=== PATIENT | female | born 1995 | race Caucasian/White ===

== ENCOUNTER 2019-07-25 20:41 | Emergency (ER) | payer SELFPAY ==
[2019-07-25 20:47] VITALS: BP 141/99; PULSE 66; RESP 16; TEMP 36.9; O2SAT 100; BMI 35.4
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
[2019-07-25] MEDS: HYDROcodone-acetaminophen 5-325 mg Tablet 1 TAB PO (21:08)
--- NOTE | 2019-07-25 21:30 | PC.NURSE ---
xray in room with pt
--- NOTE | 2019-07-25 21:43 | PC.NURSE ---
pain is a 5 on a scale of 1-10
[2019-07-25] MEDS: HYDROcodone-acetaminophen 7.5-325 mg Tablet 1 TAB PO (22:52)
[2019-07-25 22:53] VITALS: BP 138/87; PULSE 85; RESP 16; TEMP 36.7; O2SAT 96
== END 2019-07-25 23:00 | disposition home or self-care (01) ==
PROVIDERS: Emergency Provider Physician Assistant; Family Provider Nurse Practitioner
DX: S52.122A Displaced fracture of head of left radius, initial encounter for closed fracture (principal); V86.55XA Driver of 3- or 4- wheeled all-terrain vehicle (ATV) injured in nontraffic accident, initial encounter; F17.200 Nicotine dependence, unspecified, uncomplicated
CPT/HCPCS: 12345; 29125; 73080; 99281; 99283

== ENCOUNTER 2019-07-29 16:14 | Outpatient (CLI) | payer OTHER, SELFPAY | END 2019-07-29 16:15 | disposition home or self-care (01) | LOC: SPT 16:14 | PROVIDERS: Family Provider Nurse Practitioner; Visit Provider Specialist | DX: Z46.89 Encounter for fitting and adjustment of other specified devices (principal); S52.125D Nondisplaced fracture of head of left radius, subsequent encounter for closed fracture with routine healing; X58.XXXD Exposure to other specified factors, subsequent encounter | CPT/HCPCS: L3761 ==

== ENCOUNTER → 2019-08-07 14:04 | Outpatient (BNVA) | payer OTHER, SELFPAY | PROVIDERS: Family Provider Nurse Practitioner; Visit Provider Specialist | DX: S52.122A Displaced fracture of head of left radius, initial encounter for closed fracture (principal); X58.XXXA Exposure to other specified factors, initial encounter | CPT/HCPCS: 73080 ==

== ENCOUNTER → 2019-08-29 08:55 | Outpatient (BNVA) | payer OTHER, SELFPAY | PROVIDERS: Family Provider Nurse Practitioner; Visit Provider Specialist | DX: S52.122A Displaced fracture of head of left radius, initial encounter for closed fracture (principal) | CPT/HCPCS: 73080 ==

== ENCOUNTER → 2019-09-26 11:30 | Outpatient (BNVA) | payer OTHER, SELFPAY | PROVIDERS: Family Provider Nurse Practitioner; Visit Provider Specialist | DX: S52.122A Displaced fracture of head of left radius, initial encounter for closed fracture (principal); X58.XXXA Exposure to other specified factors, initial encounter | CPT/HCPCS: 73080 ==

== ENCOUNTER 2019-09-30 23:18 | Emergency (ER) | payer OTHER, SELFPAY ==
[2019-09-30 23:23] VITALS: BP 138/96; PULSE 138; RESP 14; TEMP 36.7; O2SAT 100; BMI 41.3
--- NOTE | 2019-09-30 23:49 | W.ED.FEMALGU ---
HPI - Female Genitourinary General: Chief complaint: Vaginal Bleeding Stated complaint: preg cramping/bleeding Time Seen by Provider: 09/30/19 23:34 History of Present Illness: HPI Narrative: Erlinda is a 24-year-old female who comes in complaining of vaginal bleeding. The patient is believed to be 6 weeks . She has had a positive test and a ultrasound showing a 6-week at [facility]. Dr. Nur is her physician. Since Monday she has been having intermittent vaginal bleeding and cramping. She denies any discharge or urinary symptoms. She has any lightheadedness or dizziness or near syncopal episodes. This is her first . She describes her pain as cramping in the midline and intermittent in nature. She is not tried any for this at home and she is unaware of anything that makes it better or worse. Associated symptoms: Reports abdominal pain; Deny headache(s), nausea or syncope Date of Last Menstrual Period: 07/17/19 Review of Systems Const: Denies: fever(s), chills, body aches, fatigue, malaise, night sweats or diaphoresis Eyes: Denies: change in vision, blurry vision or blind spots ENMT: Denies: throat pain, odynophagia, hoarseness, ear or mastoid pain, ear discharge, change in hearing or nasal discharge Card: Denies: chest pain, palpitations, irregular heart rhythm, lightheadedness, syncope, pre-syncope, dyspnea on exertion or orthopnea Resp: Denies: dyspnea, productive cough, non-productive cough, wheezing, hemoptysis or chest congestion GI: Reports: abdominal pain; Denies: nausea, vomiting, hematemesis, coffee ground emesis, heartburn, diarrhea, constipation, GI cramping, hematochezia or melena : Denies: flank pain, dysuria, urinary frequency, urinary urgency, oliguria, urinary incontinence or hematuria Musc: Denies: neck pain, back pain, extremity pain, extremity swelling, joint pain, joint swelling, joint redness, joint warmth or joint stiffness Skin/Breast: Denies: rash, pruritus, erythema, skin tenderness or jaundice Neuro: Denies: headache(s), numbness in extremities, weakness in extremities, sensory changes, lack of coordination, difficulty walking, dizziness, vertigo, confusion or Slurred speech present Endo: Denies: polyuria, polydipsia, tired all the time, cold intolerance, excessive sweating, flushing, hot flashes or heat intolerance Kayden/Lymph: Denies: easy bruising, easy bleeding, petechiae, purpura or enlarged lymph nodes All/Imm: Denies: urticaria, throat swelling, tongue swelling, facial swelling or acute wheezing PFSH ED PFSH: Medical History Left radial head fracture No pertinent past medical history Surgical History No history of previous surgery Family History Father Diabetes Stroke Social History Smoking and tobacco status: never smoked Alcohol intake: never Female Reproductive History: Date of last menstrual period: 07/17/19 Physical Exam Const: COMMON NORMALS: no acute distress, patient oriented x3, no limitations, healthy appearing and well nourished EXAM LIMITATIONS: no altered mental status GENERAL APPEARANCE: cooperative, well kempt and well developed HENMT: COMMON NORMALS: normocephalic, atraumatic, hearing grossly normal bilaterally, external ears normal, EAC's normal, Normal external nose present and moist oral mucous membranes HEAD & SCALP: normal to inspection, normocephalic and atraumatic FACE & SINUS: normal facial exam and face symmetric NOSE: Normal external nose present and Normal nares present EXTERNAL EAR: Yes external ears normal EXTERNAL AUDITORY CANAL: EAC's normal MOUTH: Normal oral and palatal mucosa present, lip normal and tongue normal Eye: COMMON NORMALS: Equal, round and reactive pupils present, EOMs intact bilaterally, conjunctivae normal and no scleral icterus GENERAL EYE: appearance normal, both eyes and all related structures ALIGNMENT: Yes alignment normal PERIORBITAL: periorbital findings normal EYELID: eyelids normal CONJUNCTIVA: Yes conjunctivae normal SCLERA: sclerae normal PUPIL: Yes Equal, round and reactive pupils present Neck/C-Spine: COMMON NORMALS: full ROM, no lymphadenopathy, supple, no meningeal signs and no JVD GENERAL: Yes normal visual inspection and Yes trachea midline CERVICAL SPINE: Yes cervical ROM normal Chest: COMMONS NORMALS: normal inspection of the chest and normal palpation of entire chest wall Resp: COMMON NORMALS: normal respiratory effort, No retractions, No use of accessory muscles and clear to auscultation bilaterally EFFORT & INSPECTION: Yes able to speak in complete sentences AUSCULTATION: clear to auscultation bilaterally, no crackles, no rales, no rhonchi and no wheezes Cardio: COMMON NORMALS: no JVD, regular rate, regular rhythm, S1 normal heart sound present, S2 normal heart sound present, No gallops present (Cardio), No clicks present (Cardio), No murmurs present (Cardio) and No rub (Cardio) RATE: regular rate RHYTHM: regular rhythm HEART SOUNDS: S1 normal heart sound present, S2 normal heart sound present, no click, no gallops, no murmurs and no rubs GI: COMMON NORMALS: Soft to palpation, non-tender, No hepatosplenomegaly present and no masses PALPATION: Yes Soft to palpation, No Tenderness to palpation present (GI), No Guarding due to palpation present (GI), No Rigid due to palpation, Yes No hepatosplenomegaly present, No Hernia present, No Palpable mass present and No Pulsatile mass present : COMMON NORMALS: Yes no CVA tenderness BLADDER/KIDNEY EXAM: Yes no CVA tenderness EXTERNAL FEMALE EXAM: No Hernia present SPECULUM EXAM - CERVIX: Yes Other cervical findings present (Moderate vaginal bleeding with clots. Cervix closed. No tissue noted in the office. No cervical motion tenderness or adnexal tenderness.) Back/Pelvis: COMMON NORMALS: no CVA tenderness, thoracic and lumbar spine normal to inspection, no thoracic nor lumbar tenderness and thoraco-lumbar ROM normal Extremity: COMMON NORMALS: normal to inspection, full ROM, capillary refill normal, no joint enlargement, no clubbing, cyanosis or edema and no calf tenderness Neuro: COMMON NORMALS: patient oriented x3, CN's II-XII intact bilaterally, moves all extremities, no focal motor deficits and no sensory deficits noted MENINGEAL SIGNS: Yes no meningeal signs SPEECH: speech normal Psych: COMMON NORMALS: mental status grossly normal, Normal thought process present, cooperative, normal affect, speech normal and activity/motor behavior normal APPEARANCE: Yes well kempt SPEECH: Yes normal speech THOUGHT PROCESS: Normal thought process present Skin: COMMON NORMALS: no rashes or lesions noted, turgor normal, no jaundice, no petechiae and no mottling GENERAL SKIN EXAM: no rashes or lesions noted and turgor normal Course Vital Signs: Vital signs: Vital Signs Temperature 98.0 F 09/30/19 23:23 Pulse Rate 108 H 10/01/19 03:03 Respiratory Rate 18 10/01/19 03:03 Blood Pressure 116/72 10/01/19 03:03 Pulse Oximetry 98 10/01/19 03:03 MDM - Female MDM Narrative: Medical decision making narrative: Erlinda is a nice 24-year-old female who comes in with vaginal bleeding with a known and with a previous ultrasound at [facility] which shows an intrauterine with normal heart rate. Ultrasound tonight per the tech shows an incomplete with blood still in the uterus and the cervix. There is not appear to be any remaining products of conception. Patient's blood type is O- so she will receive RhoGam before discharge. I have reviewed the case in full with Dr. Nur who is agreeable to see her the next 1 to 2 days for recheck. Lab Data: Attestation: I reviewed the patient's lab results. Labs: Lab Results 09/30/19 09/30/19 09/30/19 Range/Units 23:50 23:50 23:50 WBC 12.7 H (4.0-10.0) 10^3/ uL RBC 4.58 (4.1-5.3) 10^6/u L Hgb 10.1 L (11.5-15.3) g/dL Hct 34.5 L (37.0-47.0) % MCV 75.3 L (81-99) fL MCH 22.1 L (28.0-34.0) pg MCHC 29.3 L (30.0-36.0) g/dL RDW 15.4 H (12.1-15.1) % Plt Count 367 (130-400) 10^3/c mm MPV 10.2 (7.4-10.4) fL Neut % (Auto) 76.1 % Lymph % (Auto) 14.2 % Denton % (Auto) 7.0 % Eos % (Auto) 1.8 % Baso % (Auto) 0.4 % Neut # (Auto) 9.7 H (1.8-7.7) 10^3/u L Lymph # (Auto) 1.8 (0.8-4.8) 10^3/u L Denton # (Auto) 0.9 (0.2-0.9) 10^3/u L Eos # (Auto) 0.2 (0.0-0.8) 10^3/u L Baso # (Auto) 0.1 (0.0-0.1) 10^3/u L Nucleated RBC % (a uto) 0 % Nucleated RBCs # 0.0 /100WBC Sodium 136 (136-145) mmol/L Potassium 3.8 (3.5-5.1) mmol/L Chloride 99 (98-107) mmol/L Carbon Dioxide 25 (22-29) mmol/L Anion Gap 15.8 (5-19) BUN 12 (6-20) mg/dL Creatinine 0.7 (0.5-0.9) mg/dL GFR Calculation 102.8 (90-130) mL/min Glucose 123 H (65-115) mg/dL Calculated Osmolal ity 279 L (285-295) mOsm/k g Calcium 9.8 (8.5-10.5) mg/dL Total Bilirubin 0.2 (0.15-1.2) mg/dL AST 16 (0-32) U/L ALT 14 (0-33) U/L Alkaline Phosphata se 76 (35-105) IU/L Total Protein 7.8 (6.6-8.7) g/dL Albumin 4.0 (3.5-5.2) g/dL Globulin 3.8 (1.3-4.6) g/dL HCG, Qual (Negative) Ser , Srinath i-Qnt mIU/mL Urine Color (Yellow) Urine Appearance (CLEAR) Urine pH (5-7) Ur Specific Gravit y (1.005-1.030) Urine Protein (Negative) Urine Glucose (UA) (Normal) Urine Ketones (Negative) Urine Blood (Negative) Urine Nitrate (Negative) Urine Bilirubin (NEGATIVE) Urine Urobilinogen (Negative) mg/dL Ur Leukocyte Yina ase (Negative) Urine RBC (0-2) /hpf Urine WBC (0-5) /hpf Ur Squamous Epith Cells (0-5) Urine Bacteria (NONE) Blood Type O Negative Rho(D) Type Negaive Antibody Screen Negative 09/30/19 09/30/19 10/01/19 Range/Units 23:50 23:50 00:15 WBC (4.0-10.0) 10^3/ uL RBC (4.1-5.3) 10^6/u L Hgb (11.5-15.3) g/dL Hct (37.0-47.0) % MCV (81-99) fL MCH (28.0-34.0) pg MCHC (30.0-36.0) g/dL RDW (12.1-15.1) % Plt Count (130-400) 10^3/c mm MPV (7.4-10.4) fL Neut % (Auto) % Lymph % (Auto) % Denton % (Auto) % Eos % (Auto) % Baso % (Auto) % Neut # (Auto) (1.8-7.7) 10^3/u L Lymph # (Auto) (0.8-4.8) 10^3/u L Denton # (Auto) (0.2-0.9) 10^3/u L Eos # (Auto) (0.0-0.8) 10^3/u L Baso # (Auto) (0.0-0.1) 10^3/u L Nucleated RBC % (a uto) % Nucleated RBCs # /100WBC Sodium (136-145) mmol/L Potassium (3.5-5.1) mmol/L Chloride (98-107) mmol/L Carbon Dioxide (22-29) mmol/L Anion Gap (5-19) BUN (6-20) mg/dL Creatinine (0.5-0.9) mg/dL GFR Calculation (90-130) mL/min Glucose (65-115) mg/dL Calculated Osmolal ity (285-295) mOsm/k g Calcium (8.5-10.5) mg/dL Total Bilirubin (0.15-1.2) mg/dL AST (0-32) U/L ALT (0-33) U/L Alkaline Phosphata se (35-105) IU/L Total Protein (6.6-8.7) g/dL Albumin (3.5-5.2) g/dL Globulin (1.3-4.6) g/dL HCG, Qual Positive H (Negative) Ser , Srinath i-Qnt 9881.00 mIU/mL Urine Color Yellow (Yellow) Urine Appearance Clear (CLEAR) Urine pH 5 (5-7) Ur Specific Gravit y 1.015 (1.005-1.030) Urine Protein Neg (Negative) Urine Glucose (UA) Norm (Normal) Urine Ketones Negative (Negative) Urine Blood 2+ H (Negative) Urine Nitrate Negative (Negative) Urine Bilirubin Neg (NEGATIVE) Urine Urobilinogen Norm (Negative) mg/dL Ur Leukocyte Yina ase Negative (Negative) Urine RBC Rare (0-2) /hpf Urine WBC Rare (0-5) /hpf Ur Squamous Epith Cells 0-4 H (0-5) Urine Bacteria Trace (NONE) Blood Type Rho(D) Type Antibody Screen Imaging Data: Ultrasound Pelvis: Radiologist's impression: Tech interpretation -incomplete AB with mild cervical dilatation. Clot within uterus and cervix. Tubes and adnexa normal. No ovarian cyst, no ovarian torsion. No free fluid. Discharge Plan Discharge Patient Disposition: Home, Self-Care Clinical Impression: Incomplete Condition: Stable Prescriptions: No Action (DME) Hinged Elbow Brace Qty: 1 RF: 0 ibuprofen 200 mg Tablet 200 mg PO Q6H PRN (Reason: Pain) RF: 0 Discharge Orders: Discharge Order (Routine); Ordered 10/01/19 Ordered By: Patricia Braxton Referrals: Maame Nur MD [Physician] - 1-3 days Ailyn Langford, [facility]-C [Primary Care Provider] - Discharge Diet: Advance as tolerated Discharge Activity: Resume usual activity Patient Instructions: Spontaneous Miscarriage (ED) Activity Restrictions/Additional Instructions: Please return to the ER immediately for any of the signs or symptoms listed on your discharge instruction sheets, worsening/changing of your symptoms, you are not getting better as quickly as expected, or for ANY other cause or concerns. Return to the ER if you go through more than 2 pads an hour, you feel lightheaded or dizzy, you pass out or nearly pass out, he develop a fever, you develop shortness of breath or for any other cause for concern. Be certain to follow-up with Dr. Nur later today or tomorrow for recheck. Discharge Date/Time: 10/01/19 03:21 Coding Level of Care Code ED Personal Trainer for Chg Fwd Exam Comprehensive
[2019-09-30 23:59] LABS: Basophils # 0.1 10^3/uL (0.0-0.1); Basophils % 0.4 %; Eosinophils # 0.2 10^3/uL (0.0-0.8); Eosinophils % 1.8 %; Hematocrit 34.5 % (37.0-47.0); Hemoglobin 10.1 g/dL (11.5-15.3); Lymphocytes # 1.8 10^3/uL (0.8-4.8); Lymphocytes % 14.2 %; Mean Corpuscular HGB Conc 29.3 g/dL (30.0-36.0); Mean Corpuscular Hemoglobin 22.1 pg (28.0-34.0); Mean Corpuscular Volume 75.3 fL (81-99); Mean Platelet Volume 10.2 fL (7.4-10.4); Monocytes # 0.9 10^3/uL (0.2-0.9); Neutrophils # 9.7 10^3/uL (1.8-7.7); Neutrophils % 76.1 %; Nucleated Red Blood Cells % 0 %; Platelet Count 367 10^3/cmm (130-400); Red Blood Count 4.58 10^6/uL (4.1-5.3); Red Cell Distribution Width 15.4 % (12.1-15.1); White Blood Count 12.7 10^3/uL (4.0-10.0)
[2019-10-01 00:07] LABS: HCG, Serum Qual Positive (Negative)
[2019-10-01 00:15] LABS: Alanine Aminotransferase 14 U/L (0-33); Alkaline Phosphatase 76 IU/L (35-105); Anion Gap 15.8 (5-19); Aspartate Amino Transferase 16 U/L (0-32); Blood Urea Nitrogen 12 mg/dL (6-20); Calcium 9.8 mg/dL (8.5-10.5); Carbon Dioxide 25 mmol/L (22-29); Chloride 99 mmol/L (98-107); Globulin 3.8 g/dL (1.3-4.6); Glomerular Filtration Rate 102.8 mL/min (90-130); Glucose 123 mg/dL (65-115); Osmolality Calculated 279 mOsm/kg (285-295); Potassium 3.8 mmol/L (3.5-5.1); Sodium 136 mmol/L (136-145); Total Bilirubin 0.2 mg/dL (0.15-1.2); Total Protein 7.8 g/dL (6.6-8.7)
[2019-10-01 00:30] VITALS: BP 128/77; PULSE 112; RESP 20; O2SAT 100
[2019-10-01] MEDS: sodium chloride 0.9% 1,000 ML 999 ML IV (00:36)
[2019-10-01] MEDS: sodium chloride 0.9% 1,000 ML 100 ML IV (00:37)
[2019-10-01 00:45] LABS: Bacteria Urine TRACE; Bilirubin Urine Neg (NEGATIVE); Blood Urine 2+ (Negative); Glucose Urine UA Norm (Normal); Ketones Urine Negative (Negative); Leukocyte Esterase Urine Negative (Negative); Nitrate Urine Negative (Negative); Protein Urine Neg (Negative); RBC Urine RARE /hpf (0-2); Specific Gravity, Urine 1.015 (1.005-1.030); Squamous Epithelial Cell Urine 0-4 (0-5); Urine Appearance Clear (CLEAR); Urine Color Yellow (Yellow); Urobilinogen Urine Norm (Negative); WBC Urine RARE /hpf (0-5); pH Urine 5 (5-7)
[2019-10-01 01:19] VITALS: PULSE 111; RESP 18; O2SAT 100
[2019-10-01 01:20] VITALS: PULSE 103; RESP 14; O2SAT 100
[2019-10-01 01:25] VITALS: BP 146/81; PULSE 112; RESP 21; O2SAT 100
[2019-10-01] MEDS: ondansetron 2 mg/ML SDV 2 mL 4 MG IVP (01:28)
[2019-10-01] MEDS: morphine 4 mg/mL SDV 1 mL IVP (01:28)
[2019-10-01 02:44] VITALS: PULSE 113; RESP 18; O2SAT 99
--- NOTE | 2019-10-01 03:02 | PC.NURSE ---
Pt. received RhoGam. No adverse reaction observed.
--- NOTE | 2019-10-01 03:02 | PC.NURSE ---
Pt. HR remains elevated after 2 liters NS. MD Braxton aware and spoke with patient. Pt. adamant that she wants to go home. Reports this is her normal heart rate 2/2 her anxiety
[2019-10-01 03:03] VITALS: BP 116/72; PULSE 108; RESP 18; O2SAT 98
[2019-10-01] MEDS: ketorolac 30 mg/mL INJ 10 MG IVP (03:14)
[2019-10-01] MEDS: HYDROcodone-acetaminophen 5-325 mg Tablet 1 TAB PO (03:14)
--- NOTE | 2019-10-01 23:35 | US_ITS ---
WS: [id number] EARLY OBSTETRICAL ULTRASOUND (<14 WEEKS). HISTORY: PAIN CRAMPING BLEEDING PT WAS 6 WEEKS WOTH [facility] COMPARISON: None available. Only transabdominal imaging is submitted through a nondistended urinary bladder. Poor visualization o f the endometrial canal. Cannot confirm intrauterine gestation. No cardiac activity is identified. No free fluid or adnexal masses. US/US OB <= 14 weeks fetus [id number] IMPRESSION: 1. Incomplete evaluation of the endometrium. Recommend additional imaging with transvaginal evaluation to exclude small intrauterine gestation. 2. No free fluid.
== END 2019-10-01 03:21 | disposition home or self-care (01) ==
PROVIDERS: Emergency Provider Emergency Medicine; PCP Nurse Practitioner
DX: O03.4 Incomplete spontaneous abortion without complication (principal)
CPT/HCPCS: 12345; 36415; 76801; 80053; 81001; 84702; 84703; 85025; 86850; 86900; 87210; 87491; 87591; 90384; 96360; 96361; 96372; 96374; 96375; 99284; J1885; J2270; J2405; J7030

== ENCOUNTER 2021-12-02 22:27 | Emergency (ER) | payer SELFPAY ==
[2021-12-02 22:56] VITALS: BP 154/94; PULSE 112; RESP 18; TEMP 36.6; O2SAT 100; BMI 43.4
[2021-12-03 00:15] LABS: Basophils % 0.3 %; Eosinophils # 0.2 10^3/uL (0.0-0.8); Eosinophils % 1.6 %; Hematocrit 35.9 % (37.0-47.0); Hemoglobin 10.6 g/dL (11.5-15.3); Lymphocytes # 1.6 10^3/uL (0.8-4.8); Lymphocytes % 16.5 %; Mean Corpuscular HGB Conc 29.5 g/dL (30.0-36.0); Mean Corpuscular Hemoglobin 22.7 pg (28.0-34.0); Mean Corpuscular Volume 76.9 fl (81-99); Monocytes # 0.7 10^3/uL (0.2-0.9); Monocytes % 6.6 %; Neutrophils % 74.7 %; Nucleated Red Blood Cells % 0 %; Platelet Count 321 10^3/cmm (130-400); Red Blood Count 4.67 10^6/uL (4.1-5.3); Red Cell Distribution Width 14.9 % (12.1-15.1); White Blood Count 9.9 10^3/uL (4.0-10.0)
--- NOTE | 2021-12-03 00:44 | USR_ITS ---
PROCEDURE INFORMATION: Exam: US First Trimester, Transabdominal and US , Transvaginal Exam date and time: 12/03/2021 12:51 AM Age: 26 years old Clinical indication: Lmp or gestational age (in weeks): 6w 5 d by lmp; ; Patient HX: Light vaginal bleeding today. G2-p0 one prior miscarriage; Additional info: Threatened miscarriage LABS AND CLINICAL REPORTS: Serum Choriogonadotropin (HCG): 7904 mIU/mL Last menstrual period start date: 10/17/2021 Gestational age (Established): 6 w 5 d Estimated due date (Established): 07/24/2022 TECHNIQUE: Imaging protocol: Real-time transabdominal obstetrical ultrasound of the maternal pelvis and a first trimester , less than 14 weeks 0 days, with image documentation. Transvaginal imaging was used for better evaluation of the fetus, adnexa, and/or cervix. COMPARISON: US OB <= 14 weeks fetus [id number] 10/01/2019 12:20 AM FINDINGS: Gestation: Intrauterine gestation is visualized. pole is visualized. Yolk sac is visualized. Embryonic/ heart rate: heart rate measures 97 bpm. Extra-embryonic membranes/Placenta: Subchorionic hematoma measures 2.1 cm x 1.3 cm x 1.8 cm. Amniotic fluid: Amniotic fluid and extra-amniotic fluid is normal for gestational age. BIOMETRY: Gestational age (AUA): 5 w 6 d Estimated due date (AUA): 07/30/2022 Haralson-Rump length (CRL): 25 mm. EGA (CRL) is 5 w 6 d MATERNAL: Uterus: Uterus measures 9.2 cm x 6.3 cm x 4.9 cm. Uterus measures 9.2 x 6.3 x 4.9 cm. Cervix: Unremarkable. Right ovary/adnexa: Right ovary measures 2.8 x 2.1 x 2.4 cm, volume of 7.3 mL. Left ovary/adnexa: Left ovary measures 3.2 x 2.5 x 2.7 cm, volume of 11.7 mL and contains a 1.6 cm corpus luteal cyst. Intraperitoneal space: No intraperitoneal free fluid. US/US OB <= 14 weeks fetus [id number] IMPRESSION: Single viable corresponding to 5 weeks, 6 days.
--- NOTE | 2021-12-03 00:48 | W.ED.PREGNAN ---
HPI - General: Chief complaint: Vaginal Bleeding Stated complaint: vaginal bleeding Time Seen by Provider: 12/03/21 00:38 Source: patient Mode of arrival: ambulatory Limitations: no limitations History of Present Illness: 26-year-old female who states she is roughly 6 weeks . States today she started having some vaginal bleeding. She states that its been mainly spotting she is denies any heavy bleeding denies passing any clots. States she had some slight cramping that is since resolved. She denies any worsening improving factors denies any fever denies any vomiting. Date of Last Menstrual Period: 10/17/21 Associated symptoms: Deny abdominal pain, headache(s), nausea or vomiting Review of Systems Const: Denies: fever(s), chills, body aches or change in appetite Eyes: Denies: blurry vision or eye discomfort ENMT: Denies: throat pain or dental pain Card: Denies: chest pain Resp: Denies: dyspnea GI: Denies: abdominal pain, nausea, vomiting or diarrhea : Reports: vaginal bleeding Musc: Denies: neck pain or back pain Skin/Breast: Denies: rash Neuro: Denies: headache(s) Psych: Denies: depression Kayden/Lymph: Denies: easy bruising All/Imm: Denies: urticaria PFSH ED PFSH: Medical History (Updated 12/03/21 @ 01:40 by Rudy Conti MD) Left radial head fracture No pertinent past medical history Surgical History No history of previous surgery Family History Father Diabetes Stroke Social History Smoking and tobacco status: never smoked Alcohol intake: never Female Reproductive History: Date of last menstrual period: 10/17/21 Physical Exam Const: COMMON NORMALS: no acute distress, patient oriented x3 and healthy appearing HENMT: COMMON NORMALS: normocephalic and atraumatic HEAD & SCALP: normocephalic and atraumatic Eye: COMMON NORMALS: Equal, round and reactive pupils present and EOMs intact bilaterally PUPIL: Yes Equal, round and reactive pupils present Neck/C-Spine: COMMON NORMALS: full ROM and supple Chest: COMMONS NORMALS: normal inspection of the chest and normal palpation of entire chest wall Resp: COMMON NORMALS: normal respiratory effort, No retractions, No use of accessory muscles and clear to auscultation bilaterally AUSCULTATION: clear to auscultation bilaterally Cardio: COMMON NORMALS: regular rate, regular rhythm and No murmurs present (Cardio) RATE: regular rate RHYTHM: regular rhythm GI: COMMON NORMALS: Normal to inspection, nondistended, normoactive bowel sounds present, Soft to palpation, non-tender and no masses PALPATION: Yes Soft to palpation Extremity: COMMON NORMALS: normal to inspection and full ROM Neuro: COMMON NORMALS: patient oriented x3, moves all extremities and no focal motor deficits Psych: COMMON NORMALS: mental status grossly normal, Normal thought process present and cooperative THOUGHT PROCESS: Normal thought process present Skin: COMMON NORMALS: no rashes or lesions noted and no wounds GENERAL SKIN EXAM: no rashes or lesions noted Course Vital Signs: Vital signs: Vital Signs Temperature 97.8 F 12/02/21 22:56 Pulse Rate 112 H 12/02/21 22:56 Respiratory Rate 18 12/02/21 22:56 Blood Pressure 154/94 12/02/21 22:56 Pulse Oximetry 100 12/02/21 22:56 Oxygen Delivery Me thod 12/02/21 22:56 MDM - OB/Uterine Contractions Medical Decision Making Patient presents here with a threatened miscarriage her bleeding here is minimal ultrasound showed IUP 5 weeks with good heart rate. Patient given RhoGAM here she is stable for discharge is to follow-up with OB and return if worsening she understands agrees to plan. Lab Data : 12/03/21 00:05 12/03/21 00:05 Laboratory Results WBC 9.9 10^3/uL (4.0-10.0) 12/03/21 00:05 RBC 4.67 10^6/uL (4.1-5.3) 12/03/21 00:05 Hgb 10.6 g/dL (11.5-15.3) L 12/03/21 00:05 Hct 35.9 % (37.0-47.0) L 12/03/21 00:05 MCV 76.9 fl (81-99) L 12/03/21 00:05 MCH 22.7 pg (28.0-34.0) L 12/03/21 00:05 MCHC 29.5 g/dL (30.0-36.0) L 12/03/21 00:05 RDW 14.9 % (12.1-15.1) 12/03/21 00:05 Plt Count 321 10^3/cmm (130-400) 12/03/21 00:05 MPV 10.0 fL (7.4-10.4) 12/03/21 00:05 Neut % (Auto) 74.7 % 12/03/21 00:05 Lymph % (Auto) 16.5 % 12/03/21 00:05 [place] % (Auto) 6.6 % 12/03/21 00:05 Eos % (Auto) 1.6 % 12/03/21 00:05 Baso % (Auto) 0.3 % 12/03/21 00:05 Neut # (Auto) 7.40 10^3/uL (1.8-7.7) 12/03/21 00:05 Lymph # (Auto) 1.6 10^3/uL (0.8-4.8) 12/03/21 00:05 [place] # (Auto) 0.7 10^3/uL (0.2-0.9) 12/03/21 00:05 Eos # (Auto) 0.2 10^3/uL (0.0-0.8) 12/03/21 00:05 Baso # (Auto) 0.0 10^3/uL (0.0-0.1) 12/03/21 00:05 Nucleated RBC % (auto) 0 % 12/03/21 00:05 Nucleated RBCs # 0.0 /100WBC 12/03/21 00:05 Sodium 136 mmol/L (136-145) 12/03/21 00:05 Potassium 4.2 mmol/L (3.5-5.1) 12/03/21 00:05 Chloride 101 mmol/L (98-107) 12/03/21 00:05 Carbon Dioxide 26 mmol/L (22-29) 12/03/21 00:05 Anion Gap 13.2 (5-19) 12/03/21 00:05 BUN 11 mg/dL (6-20) 12/03/21 00:05 Creatinine 0.6 mg/dL (0.5-0.9) 12/03/21 00:05 GFR Calculation 120.8 mL/min (90-130) 12/03/21 00:05 Glucose 104 mg/dL (65-115) 12/03/21 00:05 Calculated Osmolality 282 mOsm/kg (285-295) L 12/03/21 00:05 Calcium 9.0 mg/dL (8.5-10.5) 12/03/21 00:05 Total Bilirubin 0.2 mg/dL (0.15-1.2) 12/03/21 00:05 AST 17 U/L (0-32) 12/03/21 00:05 ALT 26 U/L (0-33) 12/03/21 00:05 Alkaline Phosphatase 87 IU/L (35-105) 12/03/21 00:05 Total Protein 7.2 g/dL (6.6-8.7) 12/03/21 00:05 Albumin 4.0 g/dL (3.5-5.2) 12/03/21 00:05 Globulin 3.2 g/dL (1.3-4.6) 12/03/21 00:05 Ser , Semi-Qnt 7904.00 mIU/mL 12/03/21 00:05 Discharge Plan Discharge Patient Disposition: Home Clinical Impression: Threatened miscarriage Condition: Stable Prescriptions: No Action (DME) Hinged Elbow Brace Qty: 1 0RF Rx Instructions: As directed ibuprofen 200 mg Tablet 200 mg PO Q6H PRN (Reason: Pain) Discharge Orders: Discharge ED (Routine); Ordered 12/03/21 Ordered By: Rudy Conti Referrals: Ailyn Langford FNP-C [Primary Care Provider] - Jona Guerrero MD [Physician] - 1-3 days Discharge Diet: Advance as tolerated Discharge Activity: Resume usual activity Patient Instructions: Threatened Miscarriage (ED) Coding Level of Care Code ED Seismograph Recorder for Justice Fwd Exam Comprehensive
[2021-12-03 00:49] LABS: Alanine Aminotransferase 26 U/L (0-33); Alkaline Phosphatase 87 IU/L (35-105); Anion Gap 13.2 (5-19); Aspartate Amino Transferase 17 U/L (0-32); Blood Urea Nitrogen 11 mg/dL (6-20); Carbon Dioxide 26 mmol/L (22-29); Chloride 101 mmol/L (98-107); Globulin 3.2 g/dL (1.3-4.6); Glomerular Filtration Rate 120.8 mL/min (90-130); Glucose 104 mg/dL (65-115); Osmolality Calculated 282 mOsm/kg (285-295); Potassium 4.2 mmol/L (3.5-5.1); Sodium 136 mmol/L (136-145); Total Bilirubin 0.2 mg/dL (0.15-1.2); Total Protein 7.2 g/dL (6.6-8.7)
[2021-12-03 01:54] VITALS: BP 128/91; PULSE 109; RESP 18; O2SAT 100
== END 2021-12-03 02:35 | disposition home or self-care (01) ==
PROVIDERS: Emergency Provider Emergency Medicine; PCP Nurse Practitioner
DX: O20.0 Threatened abortion (principal); Z3A.01 Less than 8 weeks gestation of pregnancy
CPT/HCPCS: 76801; 80053; 84702; 85025; 86850; 86900; 90384; 99284

== ENCOUNTER → 2021-12-21 10:44 | Outpatient (BNVA) | payer OTHER, SELFPAY | PROVIDERS: PCP Nurse Practitioner; Visit Provider Obstetrics & Gynecology | DX: Z34.81 Encounter for supervision of other normal pregnancy, first trimester (principal); Z3A.08 8 weeks gestation of pregnancy | CPT/HCPCS: 76817; 81025 ==

== ENCOUNTER 2021-12-28 14:55 | Emergency (ER) | payer OTHER, SELFPAY ==
[2021-12-28] VITALS (8 sets, daily range): BP systolic 126–159; BP diastolic 75–92; PULSE 96–114; RESP 16–18; TEMP 36.5–37.1; O2SAT 96–100; BMI 41.3
--- NOTE | 2021-12-28 15:52 | USR_ITS ---
PROCEDURE INFORMATION: Exam: US First Trimester, Transabdominal and US , Transvaginal Exam date and time: 12/28/2021 4:46 PM Age: 26 years old Clinical indication: Lmp or gestational age (in weeks): 9w4d; Antepartum complications; Bleeding; ; Additional info: Vaginal bleeding LABS AND CLINICAL REPORTS: Last menstrual period start date: 10/17/2021 Gestational age (Established): 10 w 2 d Estimated due date (Established): 07/24/2022 TECHNIQUE: Imaging protocol: Real-time transabdominal obstetrical ultrasound of the maternal pelvis and a first trimester , less than 14 weeks 0 days, with image documentation. Transvaginal imaging was used for better evaluation of the fetus, adnexa, and/or cervix. COMPARISON: US OB transvaginal [id number] 12/21/2021 10:55 AM FINDINGS: Gestation: Single intrauterine gestation. Embryonic/ heart rate: 206 bpm. Extra-embryonic membranes/Placenta: No subchorionic hemorrhage. Amniotic fluid: Amniotic fluid and extra-amniotic fluid is normal for gestational age. BIOMETRY: Gestational age (AUA): 9 w 4 d [place]ump length (CRL): 28 mm. EGA (CRL) is 9 w 4 d MATERNAL: Uterus: Unremarkable. Cervix: Cervical length measures 3.5 cm. Small amount of anechoic fluid in the endocervical canal. The cervix is closed measuring 3.5 cm. Right ovary/adnexa: The right ovary measures 1.7 x 1.8 x 2.8 cm with normal blood flow. Left ovary/adnexa: The left ovary measures 2.2 x 2.5 x 3.3 cm with normal blood flow and a 1.8 cm follicle. Intraperitoneal space: Trace fluid in the cul-de-sac. US/US OB <=14 wk fetus w transvag IMPRESSION: 1. Single viable intrauterine gestation estimated at 9 weeks 4 days. 2. tachycardia measuring 206 bpm. Follow-up ultrasound is recommended.
--- NOTE | 2021-12-28 15:58 | ED_ITS ---
HPI - General Adult General: Chief complaint: Vaginal Bleeding Stated complaint: 10 weeks , Bleeding Time Seen by Provider: 12/28/21 15:40 History of Present Illness: 26-year-old female who is 10 weeks presenting today with continued vaginal bleeding. Patient notes that she has had intermittent vaginal bleeding for several weeks. Had an outpatient ultrasound done that demonstrated a subchorionic hemorrhage. Patient states bleeding has worsened today. With passage of large clots. She notes she is an O- blood type. She denies fevers, chills, nausea, vomiting she denies significant cramping. Review of Systems General: Reports: 10 or more systems reviewed and unremarkable except in HPI and below PFSH ED PFSH: Medical History (Updated 12/28/21 @ 18:40 by Scott Fuentes DO) Anemia Left radial head fracture No pertinent past medical history neghx: htn,dm,thyroid,dvt/pe PCP: None PCOS (polycystic ovarian syndrome) Surgical History (Updated 12/21/21 @ 09:40 by Ladi Mclean APN, JAMIE) No history of previous surgery Family History Father Diabetes Stroke Hypercholesteremia Hypertension Thyroid disease Denies family history of Colon cancer Ovarian cancer Heart disease Breast cancer Uterine cancer Female Reproductive History: Date of last menstrual period: 10/17/21 Physical Exam Const: COMMON NORMALS: no acute distress, patient oriented x3 and alert GENERAL APPEARANCE: cooperative ORIENTATION/CONSCIOUSNESS: Yes awake, Yes oriented to person, Yes oriented to place and Yes oriented to time HENMT: COMMON NORMALS: normocephalic, atraumatic, external ears normal, Normal external nose present and moist oral mucous membranes HEAD & SCALP: normal to inspection, normocephalic and atraumatic NOSE: Normal external nose present GENERAL EAR: hearing grossly impaired EXTERNAL EAR: Yes external ears normal Eye: COMMON NORMALS: Equal, round and reactive pupils present, EOMs intact bilaterally, conjunctivae normal and no scleral icterus GENERAL EYE: appearance normal, both eyes and all related structures EYELID: eyelids normal CONJUNCTIVA: Yes conjunctivae normal SCLERA: sclerae normal PUPIL: Yes Equal, round and reactive pupils present Neck/C-Spine: COMMON NORMALS: full ROM, supple and no JVD GENERAL: Yes normal visual inspection Lymph: LYMPHATIC: no lymphadenopathy noted and no lymphedema noted Chest: COMMONS NORMALS: normal inspection of the chest Resp: COMMON NORMALS: normal respiratory effort, No retractions and No use of accessory muscles Cardio: COMMON NORMALS: no JVD, regular rate and regular rhythm RATE: regular rate RHYTHM: regular rhythm GI: COMMON NORMALS: Normal to inspection, nondistended, normoactive bowel sounds present : COMMON NORMALS: Yes no CVA tenderness BLADDER/KIDNEY EXAM: Yes no CVA tenderness Back/Pelvis: COMMON NORMALS: no CVA tenderness and thoracic and lumbar spine normal to inspection Extremity: COMMON NORMALS: normal to inspection, full ROM and capillary refill normal GENERAL: Yes normal exam except as noted Neuro: COMMON NORMALS: patient oriented x3, CN's II-XII intact bilaterally, moves all extremities, no focal motor deficits, no sensory deficits noted and gait normal SENSORIUM/ORIENTATION: Yes alert, Yes oriented to person, Yes oriented to place and Yes oriented to time Psych: COMMON NORMALS: mental status grossly normal, Normal thought process present, cooperative and normal affect THOUGHT PROCESS: Normal thought process present Skin: COMMON NORMALS: no rashes or lesions noted and no wounds GENERAL SKIN EXAM: no rashes or lesions noted Course Vital Signs: Vital signs: Vital Signs Temperature 98.2 F 12/28/21 15:02 Pulse Rate 101 H 12/28/21 17:58 Respiratory Rate 16 12/28/21 17:58 Blood Pressure 136/82 12/28/21 17:58 Pulse Oximetry 100 12/28/21 17:58 Oxygen Delivery Me thod 12/28/21 15:02 [facility] - General Adult Medical Decision Making 26-year-old female 10 weeks presenting today with vaginal bleeding. Ultrasound with evidence of intrauterine however tachycardic. Patient was given RhoGAM due to vaginal bleeding. OB Contacted for follow-up. OB will go call patient over next couple days to arrange follow-up. Patient was given return precautions and recommended routine outpatient follow-up. Lab Data : 12/28/21 16:41 12/28/21 16:41 Radiology Impressions Obstetrics Ultrasound 12/28/21 15:52 IMPRESSION: 1. Single viable intrauterine gestation estimated at 9 weeks 4 days. 2. tachycardia measuring 206 bpm. Follow-up ultrasound is recommended. Laboratory Results WBC 11.7 10^3/uL (4.0-10.0) H 12/28/21 16:41 RBC 4.87 10^6/uL (4.1-5.3) 12/28/21 16:41 Hgb 11.1 g/dL (11.5-15.3) L 12/28/21 16:41 Hct 37.5 % (37.0-47.0) 12/28/21 16:41 MCV 77.0 fl (81-99) L 12/28/21 16:41 MCH 22.8 pg (28.0-34.0) L 12/28/21 16:41 MCHC 29.6 g/dL (30.0-36.0) L 12/28/21 16:41 RDW 14.8 % (12.1-15.1) 12/28/21 16:41 Plt Count 330 10^3/cmm (130-400) 12/28/21 16:41 MPV 10.4 fL (7.4-10.4) 12/28/21 16:41 Neut % (Auto) 78.9 % 12/28/21 16:41 Lymph % (Auto) 12.1 % 12/28/21 16:41 [place] % (Auto) 7.2 % 12/28/21 16:41 Eos % (Auto) 1.1 % 12/28/21 16:41 Baso % (Auto) 0.3 % 12/28/21 16:41 Neut # (Auto) 9.19 10^3/uL (1.8-7.7) H 12/28/21 16:41 Lymph # (Auto) 1.4 10^3/uL (0.8-4.8) 12/28/21 16:41 [place] # (Auto) 0.8 10^3/uL (0.2-0.9) 12/28/21 16:41 Eos # (Auto) 0.1 10^3/uL (0.0-0.8) 12/28/21 16:41 Baso # (Auto) 0.0 10^3/uL (0.0-0.1) 12/28/21 16:41 Nucleated RBC % (auto) 0 % 12/28/21 16:41 Nucleated RBCs # 0.0 /100WBC 12/28/21 16:41 Sodium 135 mmol/L (136-145) L 12/28/21 16:41 Potassium 4.2 mmol/L (3.5-5.1) 12/28/21 16:41 Chloride 98 mmol/L (98-107) 12/28/21 16:41 Carbon Dioxide 25 mmol/L (22-29) 12/28/21 16:41 Anion Gap 16.2 (5-19) 12/28/21 16:41 BUN 11 mg/dL (6-20) 12/28/21 16:41 Creatinine 0.5 mg/dL (0.5-0.9) 12/28/21 16:41 GFR Calculation 149.1 mL/min (90-130) H 12/28/21 16:41 Glucose 108 mg/dL (65-115) 12/28/21 16:41 Calculated Osmolality 280 mOsm/kg (285-295) L 12/28/21 16:41 Calcium 9.3 mg/dL (8.5-10.5) 12/28/21 16:41 Total Bilirubin 0.2 mg/dL (0.15-1.2) 12/28/21 16:41 AST 13 U/L (0-32) 12/28/21 16:41 ALT 17 U/L (0-33) 12/28/21 16:41 Alkaline Phosphatase 72 U/L (35-105) 12/28/21 16:41 Total Protein 7.6 g/dL (6.6-8.7) 12/28/21 16:41 Albumin 4.2 g/dL (3.5-5.2) 12/28/21 16:41 Globulin 3.4 g/dL (1.3-4.6) 12/28/21 16:41 Ser , Semi-Qnt 12191.00 mIU/mL 12/28/21 16:41 Blood Type O Negative 12/28/21 16:41 Rho(D) Type Negative 12/28/21 16:41 Discharge Plan Discharge Patient Disposition: Home Clinical Impression: Threatened Condition: Stable Prescriptions: No Action metformin 500 mg tablet 500 mg PO DAILY Gummies 400 mcg-35 mg- 25 mg-5 mg tablet,chewable PO ferrous sulfate 325 mg (65 mg iron) tablet 325 mg PO BID Qty: 60 3RF Discharge Orders: Discharge ED (Routine); Ordered 12/28/21 Ordered By: Scott Fuentes Referrals: Ailyn Langford, LUMBER SALVAGER-C [Primary Care Provider] - Discharge Diet: Advance as tolerated Discharge Activity: Resume usual activity Patient Instructions: Threatened Miscarriage (ED) Coding Level of Care Code ED Gear Roller for Chg Fwd Exam Comprehensive
--- NOTE | 2021-12-28 16:20 | PC.NURSE ---
pt reports she is approximately 10 weeks . reports had vaginal bleeding before but it was spotting. yesterday morning reports a gushing feeling and since then it has been heavier. Reports used 3 pads yesterday and so far has used 1. Denies pain. Reports blood was at first pink and now more bright red, denies clots. denies fevers, nausea, or vomiting. denies burning with urination. reports this is her 2nd , her previous resulted in a miscarriage around 9 or 10 weeks. reports was seen a few weeks ago here and was given rhogam.
[2021-12-28 16:50] LABS: Basophils % 0.3 %; Eosinophils # 0.1 10^3/uL (0.0-0.8); Eosinophils % 1.1 %; Hematocrit 37.5 % (37.0-47.0); Hemoglobin 11.1 g/dL (11.5-15.3); Lymphocytes # 1.4 10^3/uL (0.8-4.8); Lymphocytes % 12.1 %; Mean Corpuscular HGB Conc 29.6 g/dL (30.0-36.0); Mean Corpuscular Hemoglobin 22.8 pg (28.0-34.0); Mean Platelet Volume 10.4 fL (7.4-10.4); Monocytes # 0.8 10^3/uL (0.2-0.9); Monocytes % 7.2 %; Neutrophils # 9.19 10^3/uL (1.8-7.7); Neutrophils % 78.9 %; Nucleated Red Blood Cells % 0 %; Platelet Count 330 10^3/cmm (130-400); Red Blood Count 4.87 10^6/uL (4.1-5.3); Red Cell Distribution Width 14.8 % (12.1-15.1); White Blood Count 11.7 10^3/uL (4.0-10.0)
[2021-12-28 18:12] LABS: Alanine Aminotransferase 17 U/L (0-33); Albumin Level 4.2 g/dL (3.5-5.2); Alkaline Phosphatase 72 U/L (35-105); Anion Gap 16.2 (5-19); Aspartate Amino Transferase 13 U/L (0-32); Blood Urea Nitrogen 11 mg/dL (6-20); Calcium 9.3 mg/dL (8.5-10.5); Carbon Dioxide 25 mmol/L (22-29); Chloride 98 mmol/L (98-107); Globulin 3.4 g/dL (1.3-4.6); Glomerular Filtration Rate 149.1 mL/min (90-130); Glucose 108 mg/dL (65-115); Osmolality Calculated 280 mOsm/kg (285-295); Potassium 4.2 mmol/L (3.5-5.1); Sodium 135 mmol/L (136-145); Total Bilirubin 0.2 mg/dL (0.15-1.2); Total Protein 7.6 g/dL (6.6-8.7)
--- NOTE | 2021-12-28 19:00 | PC.NURSE ---
report given to JOAQUIN Hernández
--- NOTE | 2021-12-28 20:20 | PC.NURSE ---
Rhogam shot given and patient watched 30 post shot, patient without c/o at time of discharge. Instructions reviewed including follow up plan. Patient expressed a verbal and written understanding. patient escorted via ambulation with personal belongings to ED entrance.
== END 2021-12-28 20:23 | disposition home or self-care (01) ==
PROVIDERS: Physician Assistant; Emergency Provider Emergency Medicine; PCP Nurse Practitioner
DX: O20.0 Threatened abortion (principal); Z3A.09 9 weeks gestation of pregnancy
CPT/HCPCS: 36415; 36430; 76801; 76817; 80053; 80503; 84702; 85025; 86850; 86870; 86900; 90384; 99284

== ENCOUNTER 2021-12-31 20:08 | Emergency (ER) | payer OTHER, SELFPAY ==
[2021-12-31 20:40] VITALS: BP 134/84; PULSE 119; RESP 16; TEMP 36.8; O2SAT 96; BMI 41.3
--- NOTE | 2021-12-31 20:55 | USR_ITS ---
PROCEDURE INFORMATION: Exam: US First Trimester, Transabdominal and US , Transvaginal Exam date and time: 12/31/2021 9:39 PM Age: 26 years old Clinical indication: Lmp or gestational age (in weeks): 10/17/21; Other: Vaginal bleeding; Additional info: Bleeding, HX of subchoironic bleed LABS AND CLINICAL REPORTS: Serum Choriogonadotropin (HCG): 3322 mIU/mL Last menstrual period start date: 10/17/2021 Gestational age (Established): 10 w 5 d Estimated due date (Established): 07/24/2022 TECHNIQUE: Imaging protocol: Real-time transabdominal obstetrical ultrasound of the maternal pelvis and a first trimester , less than 14 weeks 0 days, with image documentation. Transvaginal imaging was used for better evaluation of the fetus, adnexa, and/or cervix. COMPARISON: US OB <=14 wk fetus w transvag 12/28/2021 4:46 PM FINDINGS: Gestation: Negative for intrauterine . MATERNAL: Uterus: Uterus measures 5.5 cm x 8 cm x 4.4 cm. Endometrium somewhat thickened and irregular measuring up to 13 mm, retained products of conception are not excluded. Cervix: Cervical length measures 1.7 cm. Right ovary/adnexa: Right ovary measures 1.4 cm x 1.6 cm x 1.8 cm. Right ovarian volume is 2.1 mL. Left ovary/adnexa: Left ovary measures 2.8 cm x 2.5 cm x 3 cm. Left ovarian volume is 11.2 mL. Left ovary 17 mm cyst may be follicular in nature. Intraperitoneal space: No intraperitoneal free fluid. US/US OB <= 14 weeks fetus [id number] IMPRESSION: 1. Negative for intrauterine , patient remains at risk for ectopic , close clinical correlation, serial beta HCG levels and follow-up ultrasound as clinically indicated advised. 2. Endometrium somewhat thickened and irregular measuring up to 13 mm, retained products of conception are not excluded, please correlate clinically with serial beta HCG levels. 3. Left ovary 17 mm cyst may be follicular in nature.
--- NOTE | 2021-12-31 20:56 | W.ED.PREGNAN ---
HPI - General: Chief complaint: Vaginal Bleeding Stated complaint: 10 weeks pregant and bleeding Time Seen by Provider: 12/31/21 20:55 History of Present Illness: 26-year-old female comes in today with complaints of bleeding during . Patient reports bleeding has been controlled since arriving to the ER. Patient does believe she passed some tissue. Patient was evaluated about 3 days ago and was diagnosed with a subchorionic bleed. Date of Last Menstrual Period: 10/17/21 Review of Systems Const: Denies: fever(s) Card: Denies: chest pain Resp: Denies: dyspnea : Reports: vaginal bleeding PFS ED PFSH: Medical History (Updated 12/31/21 @ 22:04 by MARIANO Song) Anemia Left radial head fracture No pertinent past medical history neghx: htn,dm,thyroid,dvt/pe PCP: None PCOS (polycystic ovarian syndrome) Surgical History (Updated 12/21/21 @ 09:40 by Ladi Mclean APN, JAMIE) No history of previous surgery Family History Father Diabetes Stroke Hypercholesteremia Hypertension Thyroid disease Denies family history of Colon cancer Ovarian cancer Heart disease Breast cancer Uterine cancer Female Reproductive History: Date of last menstrual period: 10/17/21 Physical Exam Const: COMMON NORMALS: alert Neck/C-Spine: COMMON NORMALS: full ROM Resp: COMMON NORMALS: normal respiratory effort Cardio: COMMON NORMALS: regular rate and regular rhythm RATE: regular rate RHYTHM: regular rhythm Extremity: COMMON NORMALS: normal to inspection Neuro: SENSORIUM/ORIENTATION: Yes alert Skin: COMMON NORMALS: turgor normal GENERAL SKIN EXAM: turgor normal Course Vital Signs: Vital signs: Vital Signs Temperature 98.2 F 12/31/21 20:40 Pulse Rate 119 H 12/31/21 20:40 Respiratory Rate 16 12/31/21 20:40 Blood Pressure 134/84 12/31/21 20:40 Pulse Oximetry 96 12/31/21 20:40 Oxygen Delivery Me thod 12/31/21 20:40 MDM - OB/Uterine Contractions Medical Decision Making 26-year-old female comes in today for concerns of increased vaginal bleeding and . On exam patient appears nontoxic. Patient appears no pain. Vital signs are normal except for some elevation of pulse at 119. Differential diagnosis includes spontaneous , incomplete , subchorionic hemorrhage. Laboratory values noted a hCG decreased from 30,000 to 3000. CBC was unremarkable. Ultrasound of the uterus noted no IUP or heart rate. I believe patient's probably had a complete . I reviewed with patient need for monitoring for fever and uncontrolled bleeding. Patient had received her RhoGAM at her last visit. Recommend follow-up with Dr. Lama for further instructions. Lab Data : 12/31/21 21:11 Laboratory Results WBC 8.8 10^3/uL (4.0-10.0) 12/31/21 21:11 RBC 4.81 10^6/uL (4.1-5.3) 12/31/21 21:11 Hgb 11.0 g/dL (11.5-15.3) L 12/31/21 21:11 Hct 36.9 % (37.0-47.0) L 12/31/21 21:11 MCV 76.7 fl (81-99) L 12/31/21 21:11 MCH 22.9 pg (28.0-34.0) L 12/31/21 21:11 MCHC 29.8 g/dL (30.0-36.0) L 12/31/21 21:11 RDW 14.8 % (12.1-15.1) 12/31/21 21:11 Plt Count 299 10^3/cmm (130-400) 12/31/21 21:11 MPV 10.8 fL (7.4-10.4) H 12/31/21 21:11 Neut % (Auto) 68.1 % 12/31/21 21:11 Lymph % (Auto) 18.8 % 12/31/21 21:11 [place] % (Auto) 9.9 % 12/31/21 21:11 Eos % (Auto) 2.4 % 12/31/21 21:11 Baso % (Auto) 0.3 % 12/31/21 21:11 Neut # (Auto) 6.00 10^3/uL (1.8-7.7) 12/31/21 21:11 Lymph # (Auto) 1.7 10^3/uL (0.8-4.8) 12/31/21 21:11 [place] # (Auto) 0.9 10^3/uL (0.2-0.9) 12/31/21 21:11 Eos # (Auto) 0.2 10^3/uL (0.0-0.8) 12/31/21 21:11 Baso # (Auto) 0.0 10^3/uL (0.0-0.1) 12/31/21 21:11 Nucleated RBC % (auto) 0 % 12/31/21 21:11 Nucleated RBCs # 0.0 /100WBC 12/31/21 21:11 Ser , Semi-Qnt 3322.00 mIU/mL 12/31/21 21:11 Discharge Plan Discharge Patient Disposition: Home Clinical Impression: Spontaneous miscarriage Condition: Stable Prescriptions: No Action metformin 500 mg tablet 500 mg PO DAILY Gummies 400 mcg-35 mg- 25 mg-5 mg tablet,chewable PO ferrous sulfate 325 mg (65 mg iron) tablet 325 mg PO BID Qty: 60 3RF Discharge Orders: Discharge ED (Routine); Ordered 12/31/21 Ordered By: Noel Christensen Referrals: Ailyn Langford, DIRECTOR OPERATING-C [Primary Care Provider] - Discharge Diet: Usual diet Discharge Activity: Increase activity as tolerated Patient Instructions: Miscarriage (ED) Activity Restrictions/Additional Instructions: Home and rest. Drink plenty of fluids. Follow-up with [facility]GR[facility] specialist for further evaluation and treatment. Return to ER for fever greater than 100.4, increasing pain, or bleeding greater than 1 pad an hour. Coding Level of Care Code ED Research Program Assistant for Justice Archuleta
[2021-12-31 21:37] LABS: Basophils % 0.3 %; Eosinophils # 0.2 10^3/uL (0.0-0.8); Eosinophils % 2.4 %; Hematocrit 36.9 % (37.0-47.0); Lymphocytes # 1.7 10^3/uL (0.8-4.8); Lymphocytes % 18.8 %; Mean Corpuscular HGB Conc 29.8 g/dL (30.0-36.0); Mean Corpuscular Hemoglobin 22.9 pg (28.0-34.0); Mean Corpuscular Volume 76.7 fl (81-99); Mean Platelet Volume 10.8 fL (7.4-10.4); Monocytes # 0.9 10^3/uL (0.2-0.9); Monocytes % 9.9 %; Neutrophils % 68.1 %; Nucleated Red Blood Cells % 0 %; Platelet Count 299 10^3/cmm (130-400); Red Blood Count 4.81 10^6/uL (4.1-5.3); Red Cell Distribution Width 14.8 % (12.1-15.1); White Blood Count 8.8 10^3/uL (4.0-10.0)
[2021-12-31 22:19] VITALS: BP 135/79; PULSE 101; RESP 18; TEMP 36.7; O2SAT 98
== END 2021-12-31 22:21 | disposition home or self-care (01) ==
PROVIDERS: Emergency Provider Nurse Practitioner Family; PCP Nurse Practitioner
DX: O03.9 Complete or unspecified spontaneous abortion without complication (principal); Z79.84 Long term (current) use of oral hypoglycemic drugs
CPT/HCPCS: 76801; 84702; 85025; 99284

== ENCOUNTER → 2022-02-07 10:19 | Outpatient (BNVA) | payer OTHER, SELFPAY | PROVIDERS: PCP Nurse Practitioner; Visit Provider Obstetrics & Gynecology | DX: O03.9 Complete or unspecified spontaneous abortion without complication (principal) | CPT/HCPCS: 84443; 84702; 85025 ==

== ENCOUNTER → 2022-02-25 15:44 | Outpatient (BNVA) | payer OTHER, SELFPAY | PROVIDERS: PCP Nurse Practitioner; Visit Provider Obstetrics & Gynecology | DX: N96 Recurrent pregnancy loss (principal) | CPT/HCPCS: 83001; 83036; 83520; 85613; 85730; 86038; 86146; 86147 ==

== ENCOUNTER → 2022-03-10 15:13 | Outpatient (BNVA) | payer OTHER, SELFPAY | PROVIDERS: PCP Nurse Practitioner; Visit Provider Obstetrics & Gynecology | DX: N96 Recurrent pregnancy loss (principal) | CPT/HCPCS: 76830 ==

== ENCOUNTER 2022-05-31 10:59 | Outpatient (CLI) | payer OTHER, SELFPAY ==
[2022-05-31 12:21] LABS: Estmated Average Glucose 120; Hemoglobin A1C 5.8 % (4.0-6.0)
== END 2022-05-31 11:00 | disposition home or self-care (01) ==
LOC: LAB 11:02
PROVIDERS: Visit Provider Nurse Practitioner Women's Health
DX: N96 Recurrent pregnancy loss (principal)
CPT/HCPCS: 36415; 81000; 81025; 83036; 84443; 84702

== ENCOUNTER → 2022-06-17 09:30 | Outpatient (BNVA) | payer OTHER, SELFPAY | PROVIDERS: Visit Provider Nurse Practitioner Women's Health | DX: Z34.91 Encounter for supervision of normal pregnancy, unspecified, first trimester (principal); Z3A.08 8 weeks gestation of pregnancy | CPT/HCPCS: 76817 ==

== ENCOUNTER → 2022-06-21 07:36 | Outpatient (BNVA) | payer OTHER, SELFPAY | PROVIDERS: Visit Provider Obstetrics & Gynecology | DX: O09.90 Supervision of high risk pregnancy, unspecified, unspecified trimester (principal); Z3A.00 Weeks of gestation of pregnancy not specified | CPT/HCPCS: 83036; 84315; 85027; 86592; 86762; 86803; 86850; 86900; 87086; 87340; 87806 ==

== ENCOUNTER → 2022-07-27 15:12 | Outpatient (BNVA) | payer OTHER, SELFPAY | PROVIDERS: Visit Provider Registered Nurse Neonatal Intensive Care | DX: J02.9 Acute pharyngitis, unspecified (principal) | CPT/HCPCS: 87071; 87880 ==

== ENCOUNTER → 2022-08-09 10:00 | Outpatient (BNVA) | payer OTHER, SELFPAY | PROVIDERS: Visit Provider Nurse Practitioner Women's Health | DX: O09.899 Supervision of other high risk pregnancies, unspecified trimester (principal); Z3A.00 Weeks of gestation of pregnancy not specified; D64.9 Anemia, unspecified | CPT/HCPCS: 82105; 82607; 82728; 82746; 83550; 84315; 87491; 87591; 87661 ==

== ENCOUNTER → 2022-09-12 14:23 | Outpatient (BNVA) | payer OTHER, SELFPAY | PROVIDERS: Visit Provider Obstetrics & Gynecology | DX: Z36.2 Encounter for other antenatal screening follow-up (principal) | CPT/HCPCS: 76805 ==

== ENCOUNTER → 2022-10-07 14:27 | Outpatient (BNVA) | payer OTHER, SELFPAY | PROVIDERS: Visit Provider Obstetrics & Gynecology | DX: O13.2 Gestational [pregnancy-induced] hypertension without significant proteinuria, second trimester (principal); O09.892 Supervision of other high risk pregnancies, second trimester | CPT/HCPCS: 80053; 81000; 82570; 82950; 84156; 84315; 84550; 85025 ==

== ENCOUNTER 2022-10-11 11:31 | Outpatient (CLI) | payer OTHER, SELFPAY ==
[2022-10-11 12:23] LABS: Total Volume, Urine 2550 mL
[2022-10-11 12:38] LABS: Urine Total Protein 5.1 mg/dL (0-150); Urine Total Protein 24 Hour 5.1 mg/24hr (0-150)
== END 2022-10-11 11:32 | disposition home or self-care (01) ==
PROVIDERS: Visit Provider Obstetrics & Gynecology
DX: O13.2 Gestational [pregnancy-induced] hypertension without significant proteinuria, second trimester (principal); Z3A.00 Weeks of gestation of pregnancy not specified
CPT/HCPCS: 84156

== ENCOUNTER → 2022-10-21 09:26 | Outpatient (BNVA) | payer OTHER, SELFPAY | PROVIDERS: Visit Provider Obstetrics & Gynecology | DX: Z34.92 Encounter for supervision of normal pregnancy, unspecified, second trimester (principal); Z3A.26 26 weeks gestation of pregnancy | CPT/HCPCS: 76816; 84315 ==

== ENCOUNTER → 2022-10-24 08:40 | Outpatient (BNVA) | payer OTHER, SELFPAY | PROVIDERS: Visit Provider Obstetrics & Gynecology | DX: O09.899 Supervision of other high risk pregnancies, unspecified trimester (principal); Z3A.00 Weeks of gestation of pregnancy not specified | CPT/HCPCS: 82951; 82952 ==

== ENCOUNTER → 2022-11-04 14:40 | Outpatient (BNVA) | payer OTHER, SELFPAY | PROVIDERS: Visit Provider Obstetrics & Gynecology | DX: O09.899 Supervision of other high risk pregnancies, unspecified trimester (principal); Z3A.00 Weeks of gestation of pregnancy not specified | CPT/HCPCS: 84315; 85025; 86850 ==

== ENCOUNTER 2022-11-24 08:54 | Outpatient (CLI) | payer OTHER, SELFPAY ==
--- NOTE | 2022-11-24 09:15 | US_ITS ---
WS: [id number] Exam: US OB limited [id number] Date/Time of Exam: 11/24/2022 9:06 AM Reason For Exam: Z34.90 - Encounter for supervision of normal , u... NUMBER: One PRESENTATION: Vertex CARDIAC ACTIVITY: 136 MOVEMENT: Satisfactory AMNIOTIC FLUID VOLUME: 7.92 cm PLACENTA: Anterior fundal. No previa. BIPARIETAL DIAMETER MEASUREMENTS: 7.7 cm, equals 31w0d. FEMORAL LENGTH MEASUREMENTS: 6.1 cm, equals 31w5d. ABDOMINAL CIRCUMFERENCE: 28.9 cm, equals 32w6d. ESTIMATED WEIGHT: 1927 g; 73% ESTIMATED GESTATIONAL AGE: 31w6d US/ OB limited [id number] IMPRESSION: Viable intrauterine with single fetus estimated at 31w6d 01/20/2023.
== END 2022-11-24 08:55 | disposition home or self-care (01) ==
PROVIDERS: Visit Provider Obstetrics & Gynecology
DX: Z34.90 Encounter for supervision of normal pregnancy, unspecified, unspecified trimester (principal)
CPT/HCPCS: 76815; 84315

== ENCOUNTER → 2022-11-25 08:08 | Outpatient (BNVA) | payer OTHER, SELFPAY | PROVIDERS: Visit Provider Obstetrics & Gynecology | DX: O09.899 Supervision of other high risk pregnancies, unspecified trimester (principal) | CPT/HCPCS: 81000 ==

== ENCOUNTER 2022-12-19 08:40 | Outpatient (CLI) | payer OTHER, SELFPAY ==
[2022-12-19 08:40] VITALS: RESP 17; BMI 46.6
[2022-12-19 08:53] VITALS: BP 148/68; PULSE 107
[2022-12-19 09:13] VITALS: BP 141/73; PULSE 96
[2022-12-19 09:30] VITALS: BP 146/75; PULSE 91
[2022-12-19 09:43] VITALS: BP 146/75; PULSE 91; RESP 16
== END 2022-12-19 09:43 | disposition home or self-care (01) ==
LOC: OPOB 08:49 → OBGYN 08:50
PROVIDERS: Absent Provider Obstetrics & Gynecology; Visit Provider Obstetrics & Gynecology
DX: O16.9 Unspecified maternal hypertension, unspecified trimester (principal); Z3A.00 Weeks of gestation of pregnancy not specified
CPT/HCPCS: 59025; 99211

== ENCOUNTER → 2022-12-21 09:28 | Outpatient (BNVA) | payer OTHER, SELFPAY | PROVIDERS: Visit Provider Obstetrics & Gynecology | DX: O16.9 Unspecified maternal hypertension, unspecified trimester (principal); Z3A.00 Weeks of gestation of pregnancy not specified | CPT/HCPCS: 76819 ==

== ENCOUNTER 2022-12-21 16:02 | Outpatient (CLI) | payer OTHER, SELFPAY ==
[2022-12-21 16:17] VITALS: BP 141/77; PULSE 91; TEMP 36.4
[2022-12-21 16:19] VITALS: RESP 17
[2022-12-21 16:37] VITALS: BP 135/73; PULSE 87
[2022-12-21 16:57] VITALS: BP 134/67; PULSE 85
== END 2022-12-21 17:01 | disposition home or self-care (01) ==
LOC: OPOB 16:04 → OBGYN 16:05
PROVIDERS: Visit Provider Obstetrics & Gynecology
DX: Z36.89 Encounter for other specified antenatal screening (principal)
CPT/HCPCS: 59025; 99211

== ENCOUNTER → 2022-12-26 08:39 | Outpatient (BNVA) | payer OTHER, SELFPAY | PROVIDERS: Visit Provider Obstetrics & Gynecology | DX: Z34.93 Encounter for supervision of normal pregnancy, unspecified, third trimester (principal); Z3A.36 36 weeks gestation of pregnancy | CPT/HCPCS: 76815; 76819 ==

== ENCOUNTER 2022-12-26 09:34 | Outpatient (CLI) | payer OTHER, SELFPAY ==
[2022-12-26 09:43] VITALS: BP 167/81; PULSE 102
[2022-12-26 09:49] VITALS: BMI 46.6
[2022-12-26 09:59] VITALS: BP 143/77; PULSE 95
[2022-12-26 10:14] VITALS: BP 143/67; PULSE 90
== END 2022-12-26 10:30 | disposition home or self-care (01) ==
LOC: OPOB 09:35 → OBGYN 09:36
PROVIDERS: Absent Provider Obstetrics & Gynecology; Visit Provider Obstetrics & Gynecology
DX: O13.9 Gestational [pregnancy-induced] hypertension without significant proteinuria, unspecified trimester (principal); Z3A.00 Weeks of gestation of pregnancy not specified
CPT/HCPCS: 59025

== ENCOUNTER 2022-12-30 11:55 | Outpatient (CLI) | payer OTHER, SELFPAY ==
[2022-12-30 12:11] VITALS: RESP 17
--- NOTE | 2022-12-30 12:11 | US_ITS ---
WS: [id number] BIOPHYSICAL PROFILE AMNIOTIC FLUID HISTORY: high bp, low rae COMPARISON: 12/26/2022 position: Vertex. Cardiac activity: 164 bpm. Cervix: closed. Placenta: Anterior, no previa or abruption. Placenta grade: 1 Parameters are as follows: Breathin Movement: 2 Tone: 2 Fluid volume: 2 Amniotic Fluid Index: 3.5 cm; single deepest vertical pocket 2.3 cm. IMPRESSION: 1. Biophysical profile score: 8/8. 2. Low normal amniotic fluid index. Similar to the prior study.
[2022-12-30 12:25] VITALS: BP 142/77; PULSE 88
[2022-12-30 14:27] VITALS: BP 138/87; PULSE 78
[2022-12-30 14:42] VITALS: BP 136/83; PULSE 78
[2022-12-30 14:55] VITALS: BP 136/83; PULSE 78
== END 2022-12-30 14:55 | disposition home or self-care (01) ==
LOC: OPOB 12:05 → OBGYN 12:10
PROVIDERS: Visit Provider Obstetrics & Gynecology
DX: O16.9 Unspecified maternal hypertension, unspecified trimester (principal); Z3A.00 Weeks of gestation of pregnancy not specified
CPT/HCPCS: 59025; 76819; 84315; 87081; 99211

== ENCOUNTER → 2023-01-02 08:40 | Outpatient (BNVA) | payer OTHER, SELFPAY | PROVIDERS: Visit Provider Obstetrics & Gynecology | DX: O09.899 Supervision of other high risk pregnancies, unspecified trimester (principal); Z3A.36 36 weeks gestation of pregnancy | CPT/HCPCS: 76819; 84315 ==

== ENCOUNTER 2023-01-03 00:11 | Inpatient (IN) | payer OTHER, SELFPAY ==
[2023-01-02] VITALS (31 sets, daily range): BP systolic 116–200; BP diastolic 59–84; PULSE 68–90; TEMP 36.5; BMI 46.6
[2023-01-02] MEDS: miSOPROStol 100 mcg tablet 25 MCG VAGINAL ×2 (11:11→15:24)
[2023-01-02] MEDS: labetalol 200 mg Tablet 100 MG PO ×2 (13:38→22:09)
[2023-01-02 15:47] LABS: Basophils % 0.3 %; Eosinophils # 0.1 10^3/uL (0.0-0.8); Eosinophils % 0.8 %; Hematocrit 33.5 % (36-47); Lymphocytes # 1.1 10^3/uL (0.8-4.8); Lymphocytes % 10.1 %; Mean Corpuscular HGB Conc 30.1 g/dL (30-55); Mean Corpuscular Volume 79.8 fl (85-98); Mean Platelet Volume 12.8 fL (7.4-10.4); Monocytes # 0.7 10^3/uL (0.2-0.9); Monocytes % 6.6 %; Neutrophils # 8.77 10^3/uL (1.8-7.7); Neutrophils % 81.6 %; Nucleated Red Blood Cells % 0 %; Platelet Count 231 10^3/cmm (157-399); Red Cell Distribution Width 16.2 % (12.1-15.1); White Blood Count 10.75 10^3/uL (3.29-11.43)
[2023-01-03] VITALS (77 sets, daily range): BP systolic 110–177; BP diastolic 57–97; PULSE 61–98; RESP 17; TEMP 35.9
[2023-01-03] MEDS: miSOPROStol 100 mcg tablet 25 MCG VAGINAL (02:18)
[2023-01-03] MEDS: labetalol 200 mg Tablet 100 MG PO (09:42)
[2023-01-03] MEDS: oxytocin 30 UNIT/500 ML BAG IV (09:43)
--- NOTE | 2023-01-03 14:21 | PC.NURSE ---
6 with contractions, 0 without contractions
[2023-01-03] MEDS: dextrose 5%-lactated ringers 1,000 ML 125 ML IV (17:31)
[2023-01-03] MEDS: fentaNYL 50 mcg/mL INJ 2mL IVP (17:31)
--- NOTE | 2023-01-03 19:40 | P.PN_ITS ---
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 A2 EDC January 25, 2023 At 36 w 6 d Admitted on January 02, 2023 for labor induction due to elevated BPs and oligohydramnios Received three doses of Cytotec Presently on Pitocin BP 139 / 82 Fetus reassuring Cx: 2 cm / 50% / -3 / posterior Continue Pitocin Labor: Station: +1 Amniotic Membrane Status: Ruptured Monitor Mode: Palpation Contraction Pattern: Irregular Status: Category I Vitals/I&O/Wt Last Vital Signs Temp 97.9 F 01/05/23 04:45 Pulse 97 01/05/23 08:37 Resp 15 01/05/23 08:37 BP 128/84 01/05/23 08:37 Pulse Ox 97 01/05/23 08:37 O2 Del Method Room Air 01/05/23 08:37 01/05/23 01/05/23 01/05/23 06:59 14:59 22:59 Output Total 600 / 600 Balance -600 / 857.099 Physical Exam Urinary Catheter Management: Ribeiro Latex: Cath Placed During This Visit: yes, but has since been removed by the nurse Reason for Continuing Indwelling Catheter: Decision to DC Catheter Urinary Catheter Date of Insertion: 01/04/23 Urinary Catheter Time of Insertion: 09:33 Date Urinary Catheter Removed: 01/04/23 Time Urinary Catheter Discontinued: 16:40 Data 01/05/23 09:36 A&P Assessment and plan (1) Supervision of other high-risk : (2) Oligohydramnios antepartum: (3) Gestational hypertension without significant proteinuria during in second trimester, antepartum: Attestations Medical Necessity Statement*: patient at 36 w 6 d with hypertension and oligohydramnios, admitted for labor induction Coding Level of Care Code Acute Code for Chg Fwd Diagnoses Supervision of other high-risk O09.899 Oligohydramnios antepartum O41.00X0 Gestational hypertension without significant proteinuria during in second trimester, antepartum O13.2 Time Spent (min) 30
[2023-01-04] VITALS (136 sets, daily range): BP systolic 110–206; BP diastolic 54–121; PULSE 34–155; RESP 16–18; TEMP 35.7–38.7; O2SAT 91–100
[2023-01-04] MEDS: dextrose 5%-lactated ringers 1,000 ML 125 ML IV ×2 (01:26→15:40)
[2023-01-04] MEDS: fentaNYL 50 mcg/mL INJ 2mL IVP ×3 (05:22→07:46)
[2023-01-04] MEDS: ondansetron 2 mg/ML SDV 2 mL 4 MG IVP ×2 (06:03→19:18)
--- NOTE | 2023-01-04 07:40 | PM.OBGYPN ---
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 Subjective Subjective: Interval history: Having painful UCs Requesting epidural BP 132 / 79 Fetus reassuring Cx: 2 cm / -3 / posterior Continue Pitocin Labor: Station: +1 Amniotic Membrane Status: Ruptured Monitor Mode: Palpation Contraction Pattern: Irregular Status: Category I Vitals/I&O/Wt Last Vital Signs Temp 97.9 F 01/05/23 04:45 Pulse 97 01/05/23 08:37 Resp 15 01/05/23 08:37 BP 128/84 01/05/23 08:37 Pulse Ox 97 01/05/23 08:37 O2 Del Method Room Air 01/05/23 08:37 01/05/23 01/05/23 01/05/23 06:59 14:59 22:59 Output Total 600 / 600 Balance -600 / 857.099 Physical Exam Urinary Catheter Management: Ribeiro Latex: Cath Placed During This Visit: yes, but has since been removed by the nurse Reason for Continuing Indwelling Catheter: Decision to DC Catheter Urinary Catheter Date of Insertion: 01/04/23 Urinary Catheter Time of Insertion: 09:33 Date Urinary Catheter Removed: 01/04/23 Time Urinary Catheter Discontinued: 16:40 Data 01/05/23 09:36 A&P Assessment and plan (1) Supervision of other high-risk : (2) Oligohydramnios antepartum: (3) Gestational hypertension without significant proteinuria during in second trimester, antepartum: Attestations Medical Necessity Statement*: patient at 37 w with hypertension and oligohydramnios, undergoing induction of labor Coding Level of Care Code Acute Code for Chg Fwd Diagnoses Supervision of other high-risk O09.899 Oligohydramnios antepartum O41.00X0 Gestational hypertension without significant proteinuria during in second trimester, antepartum O13.2 Time Spent (min) 30
[2023-01-04] MEDS: lactated ringers 1,000 ML 999 ML IV ×2 (07:47→08:55)
[2023-01-04] MEDS: ROPivacaine syringe 100 MG/50 ML SYRINGE 10 MG EPIDURAL (08:57)
--- NOTE | 2023-01-04 08:58 | ANES.PREANE2 ---
Pre-Anesthetic Assessment Height/Weight: Height 1.75 m Weight 143.335 kg Temp Pulse Resp BP Pulse Ox O2 Del Method 96.6 F L 78 18 130/65 99 Room Air 01/04/23 04:44 01/04/23 08:55 01/04/23 07:46 01/04/23 08:55 01/04/23 08:49 01/04/23 04:39 epidural Familial anesthetic complications: None Was Beta Ander taken within 24 hours: N/A Was Clonidine taken within 24 hours: N/A Last intake: > 8hrs Social No alcohol and No tobacco Exam alert, oriented x 3, clear to auscultation bilaterally and regular rate & rhythm Airway Mallampati: Class II Dentition: full CV/HEM Hypertension Metabolic Morbid Obesity PCOS Anesthetic Plan ASA status: 3 Anesthesia: Regional (specify below) Risk of > 500 ml blood loss (7ml/kg in children): Yes, adequate IV access and fluids planned Medications/Allergies Home Medications Medication Instructions Recorded Confirmed Last Taken Type ferrous sulfate 325 mg (65 mg 325 mg PO DAILY 10/07/22 01/02/23 01/01/23 History iron) tablet (Iron (ferrous sulfate)) aspirin 81 mg tablet,delayed 81 mg PO DAILY 10/28/22 01/02/23 01/01/23 History release (Adult Aspirin Regimen) prenat.vits,marcella,[id number]-rwxtz 1 tab PO DAILY 12/02/22 01/02/23 01/01/23 History labetalol 100 mg tablet See Rx Instructions .Route 12/22/22 01/02/23 01/01/23 Rx .COMPLEX #60 tabs Allergies Allergy/AdvReac Type Severity Reaction Status Date / Time No Known Allergies Allergy Verified 12/30/22 09:39 Current Medications Generic Name Dose Route Start Last Admin Trade Name Freq PRN Reason Stop Dose Admin Fentanyl 25 - 100 mcg 01/02/23 10:07 01/04/23 07:46 Fentanyl 50 Mcg/Ml Inj 2ml IVP 75 mcg Q1H PRN Administration SEVERE PAIN Dextrose/Lactated Ringer's 1,000 mls @ 125 mls/hr 01/02/23 10:07 01/04/23 01:26 Dextrose 5%-Lactated Ringers IV 125 mls/hr .Q8H PRN Administration per label comments Oxytocin 30 unit in 500 mls @ 1 mls/hr 01/03/23 09:15 01/04/23 00:30 Pitocin IV 20 milliunit/min .Q24H JODEE 20 mls/hr Titration Protocol 1 MILLIUNIT/MIN Lactated Ringer's 1,000 mls @ 999 mls/hr 01/03/23 09:27 01/04/23 08:55 Lactated Ringers IV 999 mls/hr .Q1H1M PRN Administration Per L&D Rescitation Protocol Lactated Ringer's 1,000 mls @ 999 mls/hr 01/04/23 07:40 01/04/23 07:47 Lactated Ringers IV 999 mls/hr .Q1H1M PRN Administration See label comments Ropivacaine 100 mg in 50 mls @ 10 mls/hr 01/04/23 07:45 01/04/23 08:57 Naropin Syringe EPIDURAL 10 mls/hr .Q5H JODEE Administration Labetalol HCl 100 mg 01/02/23 21:00 01/04/23 02:51 Labetalol 200 Mg Tablet PO Not Given BID JODEE Ondansetron HCl 4 mg 01/02/23 10:07 01/04/23 06:03 Ondansetron 2 Mg/Ml Sdv 2 Ml IVP 4 mg Q4H PRN Administration NAUSEA AND VOMITING PFSH Anesthesia Medical History Anemia Inability to conceive, female Left radial head fracture No pertinent past medical history neghx: htn,dm,thyroid,dvt/pe PCP: None PCOS (polycystic ovarian syndrome) Surgical History No history of previous surgery Family History Father Diabetes Stroke Hypercholesteremia Hypertension Thyroid disease Denies family history of Colon cancer Ovarian cancer Heart disease Breast cancer Uterine cancer Social History Smoking and tobacco status: never smoked Substance/Drug Use: never Data Anesthesia 01/02/23 11:42 Short CBC 01/02/23 Range/Units 11:42 WBC 10.75 (3.29-11.43) 10^3/uL Hgb 10.10 L (11.27-16.99) g/dL Hct 33.5 L (36-47) % MCV 79.8 L (85-98) fl Plt Count 231 (157-399) 10^3/cmm Neut % (Auto) 81.6 % Neut # (Auto) 8.77 H (1.8-7.7) 10^3/uL Cardiac Studies: No Data to Display
--- NOTE | 2023-01-04 08:59 | ANES.PROC ---
Anesthesia Procedures Procedure/Date: 01/04/23 Epidural: Time Out Performed: Yes Consents Signed: Procedure Consent Consent: requested by attending/covering physician, from patient, from other, risks and benefits reviewed and patient agrees to proceed Lumbar Level: L3-L4 Epidural position: sitting Epidural procedure: sterile prep of area, 1% lidocaine to numb the area, 18 g needle, negative for paresthesia passed, neg for paresthesia, test dose given, 1.5% xylocaine 1:200k epi (5), 0.2% Ropivacaine bolus ml (5 ), placed PCEA, no systemic response, sterile dressing applied, L.U.D. no apparent complications and 0.2% Ropiavacaine @ mls/hr (10) Additional Comments: CHAPIN at 8 cm, threaded to 14 cm, patient reported significant decrease in pain of subsequent contraction with some minor residual discomfort in r lower back. May increase rate if resistant area remains
--- NOTE | 2023-01-04 10:43 | PM.MISC ---
Miscellaneous Note Purpose of Documentation: R hip pain Note: patient with continued residual R hip pain. Bolus of bupivicaine 0.25% 10 cc given via epidural and catheter pulled back approximately 1 cm. Patient's pain with subsequent contraction improved, but was still present, and was of shorter duration. Increased pump rate to 13 ml/hr. Will continue to monitor.
[2023-01-04] MEDS: ROPivacaine syringe 100 MG/50 ML SYRINGE 13 MG EPIDURAL ×2 (11:26→14:55)
--- NOTE | 2023-01-04 11:45 | P.PN_ITS ---
HAND I BLOCKER Subjective Subjective: Interval history: Comfortable with epidural Fetus reassuring Pitocin at 20 mU Cx: 5 cm / 75% / -2 FSE placed Labor: Station: +1 Amniotic Membrane Status: Ruptured Monitor Mode: Palpation Contraction Pattern: Irregular Status: Category I Vitals/I&O/Wt Last Vital Signs Temp 97.9 F 01/05/23 04:45 Pulse 97 01/05/23 08:37 Resp 15 01/05/23 08:37 BP 128/84 01/05/23 08:37 Pulse Ox 97 01/05/23 08:37 O2 Del Method Room Air 01/05/23 08:37 01/05/23 01/05/23 01/05/23 06:59 14:59 22:59 Output Total 600 / 600 Balance -600 / 857.099 Physical Exam Urinary Catheter Management: Ribeiro Latex: Cath Placed During This Visit: yes, but has since been removed by the nurse Reason for Continuing Indwelling Catheter: Decision to DC Catheter Urinary Catheter Date of Insertion: 01/04/23 Urinary Catheter Time of Insertion: 09:33 Date Urinary Catheter Removed: 01/04/23 Time Urinary Catheter Discontinued: 16:40 Data 01/05/23 09:36 A&P Assessment and plan (1) Supervision of other high-risk : (2) Oligohydramnios antepartum: (3) Gestational hypertension without significant proteinuria during in second trimester, antepartum: Attestations 2 Medical Necessity Statement*: patient at 37 weeks with hypertension and oligohydramnios, undergoing induction of labor Coding Level of Care Code Acute Code for Chg Fwd Diagnoses Supervision of other high-risk O09.899 Oligohydramnios antepartum O41.00X0 Gestational hypertension without significant proteinuria during in second trimester, antepartum O13.2 Time Spent (min) 30
--- NOTE | 2023-01-04 18:40 | PM.DELIVERY ---
Delivery Note: Date of delivery: January 04, 2023 Pre-delivery diagnoses: 37 weeks hypertension oligohydramnios admitted for labor induction Post-delivery diagnoses: same, delivered Procedure: induction of labor vaginal delivery repair of second-degree perineal laceration manual removal of placenta management of moderate hemorrhage Op report anesthesia: Epidural Delivering Physician: Pepe Aquino MD Findings: 800 cc Pre-Delivery Course: patient was started on labor induction received cytotec, then pitocin Delivery: Vaginal delivery Post-Delivery Status: + retained fibrous placenta, required manual removal placenta removed, appears grossly complete and intact Uterine cavity explored bluntly Second-degree perineal laceration repaired + moderate hemorrhage, controlled with Pitocin and Cytotec 100 ug given rectally EBL:? 800? cc History History History 3 Term 0 0 Miscarriages/Ectopic 2 Living Children 0 A&P Assessment and plan (1) Vaginal delivery: Coding Level of Care Code Acute Code for Chg Fwd Diagnoses Vaginal delivery O80 Time Spent (min) 60
--- NOTE | 2023-01-04 18:40 | PM.OBGYPN ---
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 Subjective: Interval history: January 04, 2023, 1840 DELIVERY NOTE , vigorous Cord gases and blood obtained + retained fibrous placenta, required manual removal Placenta removed, appears grossly complete and intact Uterine cavity explored bluntly Second-degree perineal laceration repaired + moderate hemorrhage, controlled with Pitocin and Cytotec 100 ug given rectally EBL: 800 cc Labor: Station: +1 Amniotic Membrane Status: Ruptured Monitor Mode: Palpation Contraction Pattern: Irregular Status: Category I Vitals/I&O/Wt Last Vital Signs Temp 97.9 F 01/05/23 04:45 Pulse 97 01/05/23 08:37 Resp 15 01/05/23 08:37 BP 128/84 01/05/23 08:37 Pulse Ox 97 01/05/23 08:37 O2 Del Method Room Air 01/05/23 08:37 01/05/23 01/05/23 01/05/23 06:59 14:59 22:59 Output Total 600 / 600 Balance -600 / 857.099 Physical Exam Urinary Catheter Management: Ribeiro Latex: Cath Placed During This Visit: yes, but has since been removed by the nurse Reason for Continuing Indwelling Catheter: Decision to DC Catheter Urinary Catheter Date of Insertion: 01/04/23 Urinary Catheter Time of Insertion: 09:33 Date Urinary Catheter Removed: 01/04/23 Time Urinary Catheter Discontinued: 16:40 Data 01/05/23 09:36 A&P Assessment and plan (1) Vaginal delivery: (2) Oligohydramnios antepartum: (3) Gestational hypertension without significant proteinuria during in second trimester, antepartum: Attestations Medical Necessity Statement*: patient at 37 weeks with hypertension and oligohydramnios, labor induction, now vaginal delivery Coding Level of Care Code Acute Code for Chg Fwd Diagnoses Vaginal delivery O80 Oligohydramnios antepartum O41.00X0 Gestational hypertension without significant proteinuria during in second trimester, antepartum O13.2 Time Spent (min) 60
[2023-01-04] MEDS: miSOPROStol 200 mcg Tablet 800 MCG PR (18:52)
--- NOTE | 2023-01-04 19:11 | PC.NURSE ---
Discussed vitals with Dr. Aquino and requested he assess patient in room at this time.
[2023-01-04] MEDS: oxytocin 30 UNIT/500 ML BAG 20 UNIT IV (19:17)
[2023-01-04] MEDS: NIFEdipine ER (24 hr) 30 mg Tablet PO (19:58)
[2023-01-04] MEDS: acetaminophen 325 mg Tablet 650 MG PO (20:38)
[2023-01-04] MEDS: ibuprofen 800 mg tablet PO (21:43)
[2023-01-04] MEDS: benzocaine-menthol 78 gm Canister 1 SPRAY TOPICAL (21:43)
[2023-01-05 00:45] VITALS: BP 120/70; PULSE 95; TEMP 36.8; O2SAT 97
[2023-01-05 04:45] VITALS: BP 130/85; PULSE 86; TEMP 36.6; O2SAT 96
--- NOTE | 2023-01-05 08:03 | ANE.PACU2 ---
Inpatient post-anesthesia follow up: Airway intact: Yes Vital signs: Temperature 97.8 F Pulse Rate 88 Respiratory Rate 17 Blood Pressure 143/85 Pulse Oximetry 97 Oxygen Delivery Me thod Room Air Oxygen Flow Rate Fraction of Inspir ed Oxygen Hydration adequate: Yes Nausea and vomiting: No Pain level: 1 Mental status: Baseline
[2023-01-05] MEDS: ibuprofen 800 mg tablet PO ×3 (08:34→20:35)
[2023-01-05] MEDS: docusate sodium 100 mg Capsule PO ×2 (08:34→20:35)
[2023-01-05] MEDS: prenatal vitamin Capsule 1 CAP PO (08:34)
[2023-01-05 08:37] VITALS: BP 128/84; PULSE 97; RESP 15; O2SAT 97
[2023-01-05 09:00] VITALS: BP 128/84; PULSE 97; RESP 15; O2SAT 97
[2023-01-05 09:44] LABS: Hematocrit 32.2 % (36-47); Mean Corpuscular HGB Conc 30.7 g/dL (30-55); Mean Corpuscular Hemoglobin 24.3 pg (27-33); Mean Corpuscular Volume 79.1 fl (85-98); Mean Platelet Volume 11.4 fL (7.4-10.4); Platelet Count 245 10^3/cmm (157-399); Red Blood Count 4.07 10^6/uL (3.85-5.65); Red Cell Distribution Width 16.1 % (12.1-15.1); White Blood Count 20.82 10^3/uL (3.29-11.43)
--- NOTE | 2023-01-05 12:30 | P.PN_ITS ---
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 Subjective Subjective: Interval history: no c/o no headaches, dizziness, nausea, abdominal pain, bleeding normal lochia mild perineal pain, relieved with pain meds eating, voiding, ambulating well Labor: Station: +1 Amniotic Membrane Status: Ruptured Monitor Mode: Palpation Contraction Pattern: Irregular Status: Category I Vitals/I&O/Wt Last Vital Signs Temp 97.9 F 01/05/23 04:45 Pulse 97 01/05/23 08:37 Resp 15 01/05/23 08:37 BP 128/84 01/05/23 08:37 Pulse Ox 97 01/05/23 08:37 O2 Del Method Room Air 01/05/23 08:37 01/05/23 01/05/23 01/05/23 06:59 14:59 22:59 Output Total 600 / 600 Balance -600 / 857.099 Physical Exam Narrative: afebrile, VS normal comfortable, awake, alert Abd:? soft, nontender.? fundus firm Ext:? no edema;? nontender Urinary Catheter Management: Ribeiro Latex: Cath Placed During This Visit: yes, but has since been removed by the nurse Reason for Continuing Indwelling Catheter: Decision to DC Catheter Urinary Catheter Date of Insertion: 01/04/23 Urinary Catheter Time of Insertion: 09:33 Date Urinary Catheter Removed: 01/04/23 Time Urinary Catheter Discontinued: 16:40 Data 01/05/23 09:36 A&P Assessment and plan (1) Vaginal delivery: PPD #1? doing well BPs normal ? normal course ? continue care Attestations Medical Necessity Statement*: patient s/p vaginal delivery, care Coding Level of Care Code Acute Code for Chg Fwd Diagnoses Vaginal delivery O80 Time Spent (min) 30
[2023-01-05 16:00] VITALS: BP 140/98; PULSE 88; RESP 15; TEMP 36.7
[2023-01-05 22:00] VITALS: BP 132/83; PULSE 82; RESP 16; TEMP 36.4; O2SAT 98
[2023-01-06 05:00] VITALS: BP 130/84; PULSE 88; RESP 16; TEMP 36.5; O2SAT 97
--- NOTE | 2023-01-06 07:37 | P.DS_ITS ---
Discharge Providers PROJECT DEVELOPMENT COORDINATOR Date of Admission: 01/03/23 00:11 Date of Discharge: 01/06/23 Attending Provider at Admission: Filiberto Lama MD Attending Provider at Discharge: Filiberto Lama MD Primary PROJECT DEVELOPMENT COORDINATOR: Filiberto Lama MD Diagnoses at Discharge Discharge Diagnosis (1) Vaginal delivery: Status: Acute Reason for Visit Reason for Visit: IOL Brief History: Ms. Cuenca is a 27 year old established patient with LMP of 03/29/2022, HERBIE 01/03/2023, CORRECTED HERBIE by 8 week u/s; 01/25/2023 weeks gestational diabetes and oligohydramnios. Hospital Course Hospital Course Mrs. Cuenca is a 27 year old established patient with LMP of 03/29/2022, HERBIE 01/03/2023, CORRECTED HERBIE by 8 week u/s; 01/25/2023. Admitted for induction due to oligohydramnios and gestational hypertension. She has a slow progression of labor, and had a spontaneous vaginal delivery complicated by hemorrhage. observation uneventful. Tolerating diet well. Ambulating without difficulty. She was counseled regarding pelvic rest for 6 weeks (no sex, no tampons, no vaginal douches). Return to the emergency room if any fever, increased bleeding or pain. Information Peripartum Data: Infant Delivery Method: Vaginal Physical Exam Narrative: GA; alert and oriented x 3 HEENT: normal Breasts: engorged Nipples - skin intact Lungs; clear to auscultation Heart: regular rhythm, no murmurs. Abd: Appropriately tender. BS+. Uterine fundus below umbilicus. No Fundal Tenderness. Perineum: normal lochia. Extremities: no edema, no cyanosis, no tenderness. Urinary Catheter Management: Ribeiro Latex: Cath Placed During This Visit: yes, but has since been removed by the nurse Reason for Continuing Indwelling Catheter: Decision to DC Catheter Urinary Catheter Date of Insertion: 01/04/23 Urinary Catheter Time of Insertion: 09:33 Date Urinary Catheter Removed: 01/04/23 Time Urinary Catheter Discontinued: 16:40 History History History 3 Term 0 0 Miscarriages/Ectopic 2 Living Children 0 Discharge Data Studies Completed and Pending Laboratory Results WBC 20.82 10^3/uL (3.29-11.43) H 01/05/23 09:36 RBC 4.07 10^6/uL (3.85-5.65) 01/05/23 09:36 Hgb 9.90 g/dL (11.27-16.99) L 01/05/23 09:36 Hct 32.2 % (36-47) L 01/05/23 09:36 MCV 79.1 fl (85-98) L 01/05/23 09:36 MCH 24.3 pg (27-33) L 01/05/23 09:36 MCHC 30.7 g/dL (30-55) 01/05/23 09:36 RDW 16.1 % (12.1-15.1) H 01/05/23 09:36 Plt Count 245 10^3/cmm (157-399) 01/05/23 09:36 MPV 11.4 fL (7.4-10.4) H 01/05/23 09:36 Neut % (Auto) 81.6 % 01/02/23 11:42 Lymph % (Auto) 10.1 % 01/02/23 11:42 [facility] % (Auto) 6.6 % 01/02/23 11:42 Eos % (Auto) 0.8 % 01/02/23 11:42 Baso % (Auto) 0.3 % 01/02/23 11:42 Neut # (Auto) 8.77 10^3/uL (1.8-7.7) H 01/02/23 11:42 Lymph # (Auto) 1.1 10^3/uL (0.8-4.8) 01/02/23 11:42 [facility] # (Auto) 0.7 10^3/uL (0.2-0.9) 01/02/23 11:42 Eos # (Auto) 0.1 10^3/uL (0.0-0.8) 01/02/23 11:42 Baso # (Auto) 0.0 10^3/uL (0.0-0.1) 01/02/23 11:42 Nucleated RBC % (auto) 0 % 01/02/23 11:42 Nucleated RBCs # 0.0 /100WBC 01/02/23 11:42 Vitals Last Vital Signs Temp 97.7 F 01/06/23 05:00 Pulse 88 01/06/23 05:00 Resp 16 01/06/23 05:00 BP 130/84 01/06/23 05:00 Pulse Ox 97 01/06/23 05:00 O2 Del Method Room Air 01/06/23 05:00 Discharge Plan Discharge Patient Disposition: Home Condition: Stable Prescriptions: New ferrous sulfate [Iron (ferrous sulfate)] 325 mg (65 mg iron) tablet 325 mg PO BID Qty: 60 3RF ibuprofen 800 mg tablet 800 mg PO TID PRN (Reason: pain) Qty: 60 0RF acetaminophen 325 mg capsule 325 mg PO Q4H PRN (Reason: fever or pain) Qty: 60 0RF docusate sodium [Colace] 100 mg capsule 100 mg PO BID Qty: 60 0RF Continued ferrous sulfate [Iron (ferrous sulfate)] 325 mg (65 mg iron) tablet 325 mg PO DAILY prenat.vits,marcella,[id number] Tablet 1 tab PO DAILY aspirin [Adult Aspirin Regimen] 81 mg tablet,delayed release (DR/EC) 81 mg PO DAILY labetalol 100 mg tablet See Rx Instructions .ROUTE .COMPLEX Qty: 60 0RF Dose Instruction: TAKE 1 TABLET BY MOUTH TWICE DAILY FOR HYPERTENSION Rx Instructions: TAKE 1 TABLET BY MOUTH TWICE DAILY FOR HYPERTENSION Discharge Orders: Discharge Order (Routine); Ordered 01/06/23 Ordered By: Filiberto Lama Referrals: Filiberto Lama MD [Physician] - 2 weeks (Monitor blood pressure) Discharge Diet: Low Salt Discharge Activity: Limit activity as instructed Patient Instructions: Opioid Safety, Your 's Appearance (GEN), Vaginal Delivery (GEN), Bleeding (GEN), Caring for Your Baby (GEN) Activity Restrictions/Additional Instructions: 1. Please call [facility] on next working day to make your appointment in 2 weeks to monitor blood pressure. 2. Please stay home until you come back to the clinic on first post- hospatilization check up. 3. Please follow instructions on your medications CAREFULLY. 4. If you have abdominal incision, do not cover it unless dressing is necessary because of drainage. OK to shower, but avoid bath. Leave steri-strips until they fall off. If they are still on one week after surgery, you may remove them. 5. If you had vaginal surgery or vaginal repair, Dr. Lama may instruct you to take SITZ bath. 6. Yellow, blood tinged odorous vaginal discharge is usually normal after hysterectomy or vaginal surgeries. 7. No SEXUAL INTERCOURSE, tampons, or douches until you are completely released from the post-operative care. 8. Avoid constipation by eating right and maybe using some Metamucil or Milk of Magnesia. 9. All prescription refills are given during the working hours. Please do no wait till it runs out. Call the clinic at [phone] before your medication runs out. The clinic will get in touch with your doctor to prescribe medications if necessary. 10. Please remain within 40 mile radius from our hospital because emergencies do happen now and then during the post-operative period. 11. If you have stairs at home, take one step at a time slowly and minimize the number of trips. It helps to stay in one floor for the next few days. No lifting except what you can lift by one hand until you are released from the post-operative care. 12. Driving is discouraged until you are well healed. It may be 3-4 weeks before you feel strong enough to drive. You should be able to turn and look through the rear window without pain and you should be able to push the brake pedal very hard without pain before you drive. No fast rules, but SAFETY should be your primary concern. DO NOT drive if you are on sedating medications such as narcotics. 13. Call the clinic (during working hours) to make urgent appointment or go to the Emergency room, if any of the following occurs: i. Vaginal bleeding becomes heavy, more than a period. ii. Incision becomes red and sore, or drains pus. iii. Your TEMPERATURE is over 100.4F or you have chill. iv. IV site becomes red and swollen (a little ``knot?? is usually OK) v. Persistent nausea and vomiting vi. Persistent constipation or diarrhea vii. Rash or allergic reaction to medications. Discharge Attestations PROJECT DEVELOPMENT COORDINATOR Time Spent in Discharge Care*: greater than 30 min Coding Level of Care Code Acute Code for Chg Fwd Diagnoses Vaginal delivery O80
[2023-01-06] MEDS: ibuprofen 800 mg tablet PO (11:14)
[2023-01-06] MEDS: prenatal vitamin Capsule 1 CAP PO (11:14)
[2023-01-06] MEDS: docusate sodium 100 mg Capsule PO (11:14)
[2023-01-06 11:15] VITALS: BP 143/85; PULSE 88; RESP 17
[2023-01-06 12:00] VITALS: BP 143/85; PULSE 88; RESP 17; TEMP 36.6
== END 2023-01-06 12:26 | disposition home or self-care (01) | DRG 806 ==
LOC: OPOB 00:12 → OBGYN 00:12
PROVIDERS: Admitting Provider Obstetrics & Gynecology; Visit Provider Obstetrics & Gynecology
DX: O13.4 Gestational [pregnancy-induced] hypertension without significant proteinuria, complicating childbirth (principal); O41.03X0 Oligohydramnios, third trimester, not applicable or unspecified; Z37.0 Single live birth; O70.1 Second degree perineal laceration during delivery; O43.893 Other placental disorders, third trimester; Z3A.37 37 weeks gestation of pregnancy; O72.1 Other immediate postpartum hemorrhage; O24.429 Gestational diabetes mellitus in childbirth, unspecified control
CPT/HCPCS: 36415; 51702; 59025; 59409; 84315; 85025; 85027; 96374; 96376; J2405; J2590; J2795; J3010; J7120; J7121

== ENCOUNTER → 2024-06-17 16:45 | Outpatient (BNVA) | payer OTHER, SELFPAY | PROVIDERS: Visit Provider Obstetrics & Gynecology | DX: Z01.419 Encounter for gynecological examination (general) (routine) without abnormal findings (principal) | CPT/HCPCS: 87624 ==